=== PATIENT | female | born 1960 | race Caucasian/White ===

== ENCOUNTER → 2016-09-30 | Outpatient (CLI) | payer OTHER ==
[2016-09-30 15:49] LABS: Basophils % (A) 1 %; CH 29.7; CHCM 34.5; Eosinophils # (A) 0.1 k/uL (0-0.7); Eosinophils % (A) 1 %; HCT 37.2 % (34.0-46.0); HDW 2.73; HGB 12.9 gm/dL (11.4-16.0); Luc # (Auto) 0.14; Luc % (Auto) 2; Lymphocytes # (A) 1.8 k/uL (1.0-4.8); Lymphocytes % (A) 23 %; MCHC 34.7 g/dL (31.0-37.0); MCV 86.4 fL (80.0-100.0); Mean Platelet Volume 6.3; Monocytes # (A) 0.4 k/uL (0-1.0); Monocytes % (A) 5 %; Neutrophils # (A) 5.5 k/uL (1.3-7.7); Neutrophils % (A) 69 %; RBC 4.31 m/uL (3.80-5.40); RDW 13.3 % (11.5-15.5); WBC (Perox) 8.35
[2016-09-30 15:52] LABS: Appearance,Urine Cloudy (Clear); Bacteria,Urine Rare /hpf; Bilirubin,Urine Negative (Negative); Glucose,Urine (UA) Negative (Negative); Ketones,Urine Negative (Negative); Leukocyte Esterase,Urine Trace (Negative); Mucus,Urine Occasional /hpf; Nitrite,Urine Negative (Negative); Particle Count 3951; Protein,Urine Negative (Negative); RBC,Urine 10 /hpf (0-5); Specific Gravity,Urine 1.018 (1.001-1.035); Squamous Epithelial Cell,Urine 3 /hpf (0-4); UA Billing (MACRO vs. MICRO) MICRO; Urobilinogen,Urine <2.0 mg/dL (<2.0); WBC,Urine 7 /hpf (0-5)
[2016-09-30 15:55] LABS: INR 1.1 (<1.1); Partial Thromboplastin Time 23.2 sec (22.0-30.0); Prothrombin Time 11.3 sec (9.0-12.0)
[2016-09-30 16:00] LABS: ALT 24 U/L (9-52); AST 13 U/L (14-36); Alkaline Phosphatase 87 U/L (38-126); Anion Gap 9 mmol/L; Blood Urea Nitrogen 20 mg/dL (7-17); Calcium 9.4 mg/dL (8.4-10.2); Carbon Dioxide 27 mmol/L (22-30); Chloride 104 mmol/L (98-107); Glucose 118 mg/dL (74-99); Non-African American GFR(MDRD) >60 (>60 ml/min/1.73 sqM); Potassium 3.8 mmol/L (3.5-5.1); Sodium 140 mmol/L (137-145); Total Bilirubin 0.4 mg/dL (0.2-1.3); Total Protein 6.8 g/dL (6.3-8.2)
== END | disposition home or self-care (01) ==
LOC: LABWHC1 15:19
PROVIDERS: ATTEND Orthopaedic Surgery
DX: Z01.812 Encounter for preprocedural laboratory examination (principal); Z01.818 Encounter for other preprocedural examination
CPT/HCPCS: 36415; 80053; 81001; 85025; 85610; 85730; 87070

== ENCOUNTER 2016-10-12 08:53 | Inpatient (IN) | payer OTHER ==
[2016-10-06 10:02] VITALS: BMI 40.7
--- NOTE | 2016-10-11 13:39 | HP ---
CHIEF COMPLAINT: Right knee pain. 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 She is having aching, soreness and stiffness. She has intermittent giving way. She had a previous arthroscopy in 2008 in addition to previous injections with only a partial temporary relief. She has tried an assortment of medications with only partial temporary relief. Past medical history is significant for rheumatoid arthritis and depression. Past surgical history is significant for right knee arthroscopy in addition to right shoulder surgery. CURRENT MEDICATIONS: 1. Ibuprofen. 2. Tylenol. She has allergies to ASPIRIN and LATEX. Family history is negative. Social history is negative for current tobacco or alcohol use. On examination, the patient is a well-developed, well-nourished female of endomorphic habitus. HEENT exam is nonfocal. Neck is supple. She has painless passive motion of the right hip, straight leg raise is negative. Active motion right knee -12 to 70 degrees of flexion. She has a large effusion. She is tender about the medial and lateral joint line. Collaterals are stable, Trevon is negative, Celina's is equivocal. She has genu valgum alignment. Her distal neurovascular exam appears to be intact in the right lower extremity. Previous weight-bearing, notch, lateral and Merchant views of the right knee obtained in the office show several lateral and patellofemoral compartment narrowing. IMPRESSION: 1. Right knee severe lateral and patellofemoral compartment osteoarthritis/ rheumatoid arthritis. 2. Increased body mass index. RECOMMENDATIONS: I talked to the patient at length regarding her treatment options. She is having significant pain and limitation related to her knee arthritis despite conservative measures. After a thorough discussion, she opts to proceed with surgery. We will plan to proceed with right total knee arthroplasty. We will institute DVT prophylaxis postoperatively. The patient underwent preoperative medical evaluation by Dr. Brown. [place]
[~2016-10-12 08:53] MED LIST: ACETAMINOPHEN TAB 500 MG TAB PO ONE; DEXAMETHASONE SOD PHOSPHATE 10 MG/ML 1 ML VIAL IV ONE; HYDROmorphone 1 MG/ML 1 ML SYRINGE IVP PRN; MELOXICAM 7.5 MG TAB PO ONE; MIDAZOLAM 2 MG/2 ML VIAL IV PRN; ONDANSETRON 4 MG/2 ML VIAL IVP ONE; TRANEXAMIC ACID 1,000 MG in SODIUM CHLORIDE 0.9% 100 ML IVPB ONE; ceFAZolin 2 GM in SODIUM CHLORIDE 0.9% 100 ML IVPB ONE
[2016-10-12] MEDS ORDERED: ROPIVACAINE 246.25 MG, EPINEPHrine 0.5 MG, KETOROLAC 30 MG, cloNIDine HCL/PF 80 MCG, WA... MISCELLANE ONE ×5 (09:51)
[2016-10-12] MEDS ORDERED: LIDOCAINE 1% 20 ML VIAL (10MG/ML) FOR IV START INTRADERMA ONE (10:15)
[2016-10-12] MEDS ORDERED: fentaNYL (PF) 50 MCG/ML 2 ML AMP IV ONE (10:17)
[2016-10-12] MEDS: LACTATED RINGERS 1,000 ML IV SCH (10:42)
[2016-10-12] MEDS ORDERED: ROPIVACAINE 1,100 MG, SODIUM CHLORIDE 0.9% 330 ML MISCELLANE PRN ×2 (10:47)
--- NOTE | 2016-10-12 10:50 | P.ONQ ---
Anesthesiology Proc Note - PNB - Peripheral Nerve Block Performed Right Adductor Canal Infusion Time Out Performed: Yes Procedure Start Time: 10:20 Procedure Stop Time: 10:30 Indication: Acute Post-Operative Pain, Requested by physician Specifically requested for management of pain by : Marcelo Doran Sedation Type: Sedate with meaningful contact maintained Preparation: Sterile Dressing Position: Supine Catheter Depth at Skin (cm): 6 Catheter: Indwelling Needle Types: Other (see comment) Needle Size: 100mm (4") Needle Gauge: 20, Other (see comment) (JOHN) Technique: Ultrasound Injectate: 0.5% Ropivacaine (see comment for volume) (25 ml)
[2016-10-12] MEDS ORDERED: LIDOCAINE 1% INJ 10MG/ML (20 ML MDV) ONE (10:53)
[2016-10-12] MEDS ORDERED: fentaNYL (PF) 50 MCG/ML 2 ML AMP ONE (10:53)
[2016-10-12] MEDS ORDERED: SODIUM CHLORIDE 0.9% 100 ML BAG ONE (10:53)
[2016-10-12] MEDS ORDERED: MIDAZOLAM 2 MG/2 ML VIAL ONE (10:53)
[2016-10-12] MEDS ORDERED: PROPOFOL 10 MG/ML 20 ML VIAL IV ONE (10:53)
[2016-10-12] MEDS ORDERED: TRANEXAMIC ACID 1,000 MG/10 ML VIAL ONE (10:53)
[2016-10-12] MEDS ORDERED: ceFAZolin 3,000 MG in SODIUM CHLORIDE 0.9% IRRIGATIO 3,000 ML IRRIGATION ONE (11:23)
[2016-10-12] MEDS ORDERED: LACTATED RINGERS 1,000 ML IV ONE (12:36)
[2016-10-12] MEDS ORDERED: MAGNESIUM HYDROXIDE 2,400 MG/10 ML CUP PO PRN (13:03)
[2016-10-12] MEDS ORDERED: ACETAMINOPHEN TAB 325 MG TAB PO PRN (13:03)
[2016-10-12] MEDS ORDERED: HYDROmorphone 1 MG/ML 1 ML SYRINGE IVP PRN (13:03)
[2016-10-12] MEDS ORDERED: NALOXONE 0.4 MG/ML 1 ML VIAL IV PRN (13:03)
[2016-10-12] MEDS ORDERED: HYDROcodone/APAP 7.5-325MG 1 EACH TAB PO PRN (13:03)
[2016-10-12] MEDS ORDERED: ONDANSETRON 4 MG/2 ML VIAL IVP PRN (13:03)
--- NOTE | 2016-10-12 13:36 | P.OP ---
Date of Procedure: 10/12/16 Preoperative Diagnosis: Right knee severe tricompartmental rheumatoid arthritis Postoperative Diagnosis: Same Procedure(s) Performed: Right total knee qszrneuxkjex-kybvoaib-xzxdclcer stabilized Implants: Depuy attune size 5 cemented femoral component, size 4 cemented tibial component , 9 mm articular surface, 32 mm cemented patellar component. This is a posterior stabilized implant. Anesthesia: regional, local, spinal Surgeon: Marcelo Doran Marketing Rotation Associate #1: Rd Bailey Estimated Blood Loss (ml): 50 Pathology: other (Bone fragments) Condition: stable Disposition: PACU Indications for Procedure: The patient's a 55-year-old female with severe rheumatoid arthritis of her right knee who had persistent symptoms that limited her despite conservative measures. A discussion of the risks and benefits of operative intervention versus continued conservative measures was made with the patient. She opted to proceed with surgery. Operative risks to include infection, neurovascular injury, development of blood clots, possible component loosening, possible component failure and need for subsequent procedures was discussed. Informed consent was obtained. Operative Findings: As below/severe synovitis Description of Procedure: The patient was brought to the operating room and after induction of spinal anesthesia the right lower extremity was prepped and draped in normal fashion. The limb was elevated to facilitate exsanguination. The tourniquet was inflated to 270 mmHg. A longitudinal incision extending 3 finger breaths above this. Pole patella extending to the medial aspect the tibial tubercle was then made. The skin and subcutaneous tissues were divided sharply. Electrocautery was used for hemostasis. A medial parapatellar arthrotomy was performed. The medial soft tissues to include the superficial and deep portions of the medial collateral ligament as well as the medial hamstring tendons were elevated subperiosteally. The patella was everted. A portion of the retropatellar fat pad was excised sharply. The knee was then flexed. The anterior cruciate ligament was resected. There was significant synovitis that was sharply debrided. I did release the LCL and popliteus from the lateral femoral upper condyle with electrocautery as she had significant valgus deformity. A starting hole was made in the distal femur 1 cm anterior to the posterior cruciate ligament origin. An intramedullary femoral guide was gently inserted planning on 5 valgus distal cut with 9 mm distal resection. The block was pinned in placed and the distal cut made. The posterior referencing sizing guide was utilized. I felt size 5 was most appropriate. 3 external rotation was built into the system and verified off the trans-epicondylar axis and the posterior condyles. The cutting block was pinned in place. The anterior, posterior, and chamfer cuts were then made. The bone fragments were then removed. The box guide was placed and the box cut was made with a reciprocating saw. The trial size 5 femoral component was then placed. It was fully seated. There was good anterior to posterior and medial to lateral fit. It was noted there was a small fracture line extending along the lateral aspect of the notch cut into the femoral condyle. I did place a 4.5 mm x 70 mm cortical screw to compress this. It appeared to be stable. Attention was then paid towards preparing the proximal tibia. An extra medullary guide was utilized in line with the tibial shaft and second metatarsal distally. I planned on 0 posterior slope. I planned on 6 mm resection from the medial compartment. The cutting block was pinned in place. The proximal tibial cut was made in the bone removed in one fragment. An additional 2 mm was resected as the flexion and extension gaps were both tight. The tibia sized most appropriate size 4. The trial femoral and tibial components were placed along with a 9 mm articular surface. Limb to obtain full flexion and extension with good stability with varus and valgus stress. After several flexion and extension cycles, the tibial rotation was marked with electrocautery in line with the medial one third of the tibial tubercle. Attention was then paid towards preparing the patella. A patella reamer was utilized taking this down to 14 mm of bone stock. A good flush cut was made. The patella sized most appropriate 32 mm. The peg holes were drilled. The trial components were placed. The knee was taken through range of motion. I had good patellofemoral tracking with no hands technique. The trial components were then removed. The remnants the medial lateral menisci were excised at the capsular junction with electrocautery. The tibia was prepared in the appropriate rotation with appropriate drill and keel punch. The flexion and extension gaps were checked and felt to be symmetric. The posterior soft tissues were injected with ropivacaine. The bony surfaces were prepared with pulsatile lavage and dried. The tibial component was cemented in placed and was fully seated. Excess cement was removed. The femoral component was cemented in placed and was fully seated. Excess cement was removed. The trial 9 mm articular surface was placed and the knee was put in full extension. The patella component was cemented in placed and was fully seated. After the cement had sufficiently hardened, the knee was again taken through range of motion. Again I was able to obtain full flexion and extension with good stability with varus and valgus stress. The trial articular surface was removed and the final one inserted. Care was taken to avoid any soft tissue interposition. Pulsatile lavage was utilized. The medial parapatellar arthrotomy was closed with #2 Ethibond suture. A deep drain was placed exiting laterally. The tourniquet was deflated with approximately 80 minutes total tourniquet time. Final hemostasis was obtained with electrocautery. The second dose of IV TXA was given. The subcutaneous tissues were reapproximated with interrupted 2-0 Vicryl sutures. The skin was reapproximated with 3-0 subcuticular strata fix suture. Skin tape and adhesive was applied. A sterile dressing was applied. The patient was awoken from sedation and transferred to the recovery room in good condition. Blood loss was estimated 50 mL. Complications include an iatrogenic fracture of the lateral femoral condyle that was repaired with a 4.5 mm cortical screw. Sponge and needle counts were correct at the end the case.
--- NOTE | 2016-10-12 13:43 | XR ---
EXAMINATION TYPE: XR knee limited RT, 2 VIEWS DATE OF EXAM ORDERED: 10/12/2016 HISTORY: Right knee arthroplasty. COMPARISON: None. FINDINGS: A right knee arthroplasty has been performed. Prosthetic elements appear in good position. A metaphyseal screw is in place. One surgical drain is in place. There is subcutaneous and intra-art icular air. IMPRESSION: STATUS POST RIGHT ARTHROPLASTY.
[2016-10-12] MEDS: HYDROcodone/APAP 7.5-325MG 1 EACH TAB PO PRN (16:28)
[2016-10-12] MEDS: traMADol 50 MG TAB PO SCH ×2 (18:00→22:33)
--- NOTE | 2016-10-12 18:41 | P.CONS ---
History of Present Illness - Reason for Consult Mild sinus tachycardia, preoperative composition management. - History of Present Illness Patient underwent right knee arthroplasty patient pain is well controlled with no cold but she is concerned about constipation. Patient did not pass gas yet that did not move her bowels.. I'm starting her on MiraLAX and when necessary basis for constipation. Patient is slightly tachycardic. Denied any fever, chills, nausea, vomiting, abdominal pain. Review of Systems REVIEW OF SYSTEMS: CONSTITUTIONAL: No fever, no malaise, no fatigue. HEENT: No recent visual problems or hearing problems. Denied any sore throat. CARDIOVASCULAR: No chest pain, orthopnea, PND, no palpitations, no syncope. PULMONARY: No shortness of breath, no cough, no hemoptysis. GASTROINTESTINAL: No diarrhea, no nausea, no vomiting, no abdominal pain. Normoactive bowel sounds. NEUROLOGICAL: No headaches, no weakness, no numbness. HEMATOLOGICAL: Denies any bleeding or petechiae. GENITOURINARY: Denies any burning micturition, frequency, or urgency. MUSCULOSKELETAL/RHEUMATOLOGICAL: Denies any joint pain, swelling, or any muscle pain. ENDOCRINE: Denies any polyuria or polydipsia. The rest of the 14-point review of systems is negative. Past Medical History Past Medical History: Osteoarthritis (OA) History of Any Multi-Drug Resistant Organisms: None Reported Past Surgical History: Hysterectomy, Orthopedic Surgery Additional Past Surgical History / Comment(s): r-knee, l-shoulder scopes Past Anesthesia/Blood Transfusion Reactions: No Reported Reaction Past Psychological History: No Psychological Hx Reported Smoking Status: Former smoker - Past Family History Mother Family Medical History: No Reported History Father Family Medical History: Unable to Obtain Medications and Allergies Home Medications Medication Instructions Recorded Confirmed Type Ciprofloxacin HCl [Cipro] 500 mg PO Q12HR 10/06/16 10/12/16 History DULoxetine HCL [Cymbalta] 20 mg PO DAILY 10/06/16 10/12/16 History Ibuprofen [Motrin] 800 mg PO TID PRN 10/06/16 10/12/16 History Krill/Om-3/Dha/Epa/Phospho/Ast 1 cap PO DAILY 10/06/16 10/12/16 History [[place]-3 Krill Oil 300 mg Sfgl] Lysine [l-Lysine] 500 mg PO DAILY 10/06/16 10/12/16 History Multivitamins, Thera [Multivitamin 1 tab PO DAILY 10/06/16 10/12/16 History (formulary)] Allergies Allergy/AdvReac Type Severity Reaction Status Date / Time aspirin AdvReac stomach Verified 10/12/16 09:44 pain latex AdvReac Rash/Hives Verified 10/12/16 09:44 with blisters Physical Exam Vitals: Vital Signs Temp Pulse Resp BP Pulse Ox 10/12/16 16:45 103 H 144/78 10/12/16 16:30 94 147/74 10/12/16 16:15 90 156/79 10/12/16 16:00 96 137/87 10/12/16 15:45 85 136/83 10/12/16 15:30 95 135/78 10/12/16 15:15 95 132/78 10/12/16 15:00 94 123/73 10/12/16 14:45 96.8 F L 95 16 124/69 94 L 10/12/16 14:15 105 H 18 129/61 93 L 10/12/16 14:00 94 18 128/58 94 L 10/12/16 13:45 95 16 128/58 94 L 10/12/16 13:30 96 16 137/63 97 10/12/16 13:22 97.3 F L 104 H 16 136/64 98 10/12/16 09:40 98.5 F 83 16 142/65 99 Intake and Output 10/12/16 10/12/16 10/12/16 06:59 14:59 22:59 Intake Total 1201 Output Total 550 600 Balance 651 -600 Intake: IV 1201 Output: Urine 500 600 Estimated Blood Loss 50 Other: Weight 104.326 kg Patient Weight 10/13/16 06:59 Weight 104.326 kg PHYSICAL EXAMINATION: GENERAL: The patient is alert and oriented x3, not in any acute distress. Well developed, well nourished. HEENT: Pupils are round and equally reacting to light. EOMI. No scleral icterus. No conjunctival pallor. Normocephalic, atraumatic. No pharyngeal erythema. No thyromegaly. CARDIOVASCULAR: S1 and S2 present. No murmurs, rubs, or gallops. PULMONARY: Chest is clear to auscultation, no wheezing or crackles. ABDOMEN: Soft, nontender, nondistended, normoactive bowel sounds. No palpable organomegaly. MUSCULOSKELETAL: defer to orthopedic surgery EXTREMITIES: No cyanosis, clubbing, or pedal edema. NEUROLOGICAL: Gross neurological examination did not reveal any focal deficits. SKIN: No rashes. Assessment and Plan Plan: 1 mild tachycardia appears to be sinus tachycardic and exam I believe it secondary to pain, pain control. Monitor vitals. If her heart rate remains high then we will do further workup with TSH and EKG 2 postoperative day 0 right knee arthroplasty: Patient's pain is better controlled with [place] but concerned about constipation for which we'll use MiraLAX. DVT prophylaxis as per primary service patient is on xarelto for DVT prophylaxis posterior right knee arthroplasty. We will follow the patient on as-needed basis.
[2016-10-12] MEDS: HYDROmorphone 1 MG/ML 1 ML SYRINGE IVP PRN ×2 (19:21→23:31)
[2016-10-12] MEDS: ceFAZolin 2 GM in SODIUM CHLORIDE 0.9% 100 ML IVPB SCH (19:41)
[2016-10-12] MEDS ORDERED: SENNOSIDES-DOCUSATE SODIUM 1 EACH TAB PO SCH (21:00)
[2016-10-13] MEDS: ceFAZolin 2 GM in SODIUM CHLORIDE 0.9% 100 ML IVPB SCH (03:09)
[2016-10-13] MEDS: LACTATED RINGERS 1,000 ML IV SCH (05:07)
[2016-10-13] MEDS: HYDROmorphone 1 MG/ML 1 ML SYRINGE IVP PRN (06:01)
[2016-10-13 07:04] LABS: Basophils % (A) 0 %; CH 29.7; CHCM 33.6; Eosinophils % (A) 0 %; HCT 35.6 % (34.0-46.0); HDW 2.81; Luc # (Auto) 0.16; Luc % (Auto) 2; Lymphocytes # (A) 1.6 k/uL (1.0-4.8); Lymphocytes % (A) 16 %; MCHC 33.7 g/dL (31.0-37.0); MCV 89.1 fL (80.0-100.0); Mean Platelet Volume 6.5; Monocytes # (A) 0.6 k/uL (0-1.0); Monocytes % (A) 6 %; Neutrophils # (A) 7.7 k/uL (1.3-7.7); Neutrophils % (A) 76 %; RBC 3.99 m/uL (3.80-5.40); RDW 13.8 % (11.5-15.5); WBC (Perox) 10.12
[2016-10-13 08:10] VITALS: BP 159/77; PULSE 87; RESP 16; TEMP 97.3
[2016-10-13] MEDS ORDERED: RIVAROXABAN 10 MG TAB PO SCH (09:00)
[2016-10-13] MEDS ORDERED: POLYETHYLENE GLYCOL 3350 17 GM POWD.PACK PO SCH (09:00)
[2016-10-13] MEDS ORDERED: FAMOTIDINE 20 MG TAB PO SCH (09:00)
[2016-10-13] MEDS: traMADol 50 MG TAB PO SCH ×2 (09:22→13:40)
[2016-10-13] MEDS: HYDROcodone/APAP 7.5-325MG 1 EACH TAB PO PRN ×2 (09:22→14:52)
--- NOTE | 2016-10-13 11:34 | P.PN ---
Progress Note - Text . Postoperative day # 1 status post total knee arthroplasty, under spinal anesthesia, and adductor canal catheter placed for postoperative analgesia, currently at ropivacaine 0.2% 8 mL per hour and continuous infusion, catheter site local. There is no erythema, and there is no tenderness, visual analogue scale is 3/10, patient using oral pain medication for breakthrough pain. Assessment and plan= Acute postoperative pain, adductor canal catheter for pain control, pain is well controlled we'll continue the same management.
--- NOTE | 2016-10-13 11:57 | P.PN ---
Subjective Principal diagnosis: Status post right total knee arthroplasty Patient is seen today resting in her hospital bed, she appears comfortable. Her urinary catheters been discontinued, she is urinating on her own. Pain is well-controlled. She is admitted well with PT. She denies any headaches, lightheadedness, chest pain, shortness of breath, fever or chills. Objective - Vital Signs Vital signs: Vital Signs Temp 97.3 F L 10/13/16 07:00 Pulse 87 10/13/16 07:00 Resp 16 10/13/16 07:00 BP 159/77 10/13/16 07:00 Pulse Ox 97 10/13/16 07:00 Intake & Output 10/12/16 10/13/16 10/13/16 18:59 06:59 18:59 Intake Total 1201 900 Output Total 1150 850 310 Balance 51 50 -310 Weight 104.326 kg Intake: IV 1201 Oral 900 Output: Drainage 10 Right Knee 10 Urine 1100 850 300 Uretheral (Bonner) 300 Estimated Blood Loss 50 Other: Voiding Method Indwelling Catheter - Exam Right lower extremity: Incision is clean, dry, and intact. Anterior posterior compartments the upper leg are soft, calf is supple, no tenderness with palpation.(Plantar flexion, dorsiflexion, EHL, FHL are intact. Sensory exam to light touch throughout the extremity is intact. Dorsal pedis pulses 2+. - Labs CBC & Chem 7: 10/13/16 06:24 Assessment and Plan Plan: Assessment: 1. Postop day #1 status post right total knee arthroplasty Plan: 1. Pain control, continue supportive oral medication 2. Continue work with therapy and CPM use 3. Encourage incentive spirometer 4. GI and DVT prophylaxis, continue Xarelto 5. Daily dressing changes/ice and elevate 6. Medical recommendations 7. Discharge planning: Patient will likely be discharged home today Time with Patient: Less than 30
--- NOTE | 2016-10-13 11:59 | P.DS ---
Providers Date of admission: 10/12/16 08:53 Expected date of discharge: 10/13/16 Attending physician: Marcelo Doran Consults: 10/12/16 13:05 Consult Physician Routine Consulting Provider: Garcia Neal Consult Reason/Comments: Medical Management Do you want consulting provider notified?: Yes Primary care physician: [facility] Hospital Course: Date of admission: 10/12/2016 Date of discharge: 10/13/2016 Admission diagnosis: Status post right total knee arthroplasty Discharge diagnosis: Same Attending physician: Dr. Doran Surgical procedures: Right total knee arthroplasty Brief history: Patient is a 55-year-old female with a history of progressive primary right knee osteoarthritis. At this point patient has failed conservative treatment measures and has opted to proceed with a elective right total knee arthroplasty. Hospital course: Details of patient's surgery can be found in operative report. Patient tolerated the procedure well and was subsequently transported to orthopedic floor. Patient's orthopeidc and medical care was provided daily. Patient had daily laboratory tests performed for evaluation of overall blood counts. Patient had daily physical therapy to include strengthening range of motion as well as education with walker ambulation. Patient had daily CPM usage as part of their physical therapy program. Patient was treated with Xarelto for their postoperative DVT prophylaxis during their inpatient stay. Patient was noted to have a relatively uneventful postoperative course. Patient reported satisfactory pain control with oral pain medications by postoperative day 0. Patient showed satisfactory progress with physical therapy. Patient moved steadily through the program and had no difficulty meeting the goals by postoperative day 1. Given patient's otherwise satisfactory course and having met physical therapy goals, plan is to discharge patient home on postoperative day 1. Discharge condition/disposition: Patient will be discharged home in stable condition. Discharge medications: Instructions are given on resumption of patient's normal daily medications per primary care recommendation, in addition patient will be prescribed [place] 7.5 mg/325 mg, tramadol 50 mg, Colace 100 mg, Pepcid 20 mg, Coumadin 2.5mg. Discharge instructions: 1. Wound care and infection precautions, keep incision dry and covered while showering, no lotions, creams, moisturizers. No soaking, tubs, pools, hottubs. Do not scrub over the incision. 2. Weight-bear as tolerated with walker / cane until follow-up. 3. Ice and elevate when necessary. Do not exceed 20 minutes per hour with ice pack. 4. Utilize compression sleeve until seen at first follow up appointment. 5. Visiting nursing care. 6. Home physical therapy including home CPM. 7. Pain meds and anticoagulants per prescription. 8. Pain medication has potential to cause constipation. Increase oral fluid and fiber intake. Contact primary care provider if you have not had a bowel movement within 48 hours after discharge 9. No anti-inflammatory medication until discussed at first post operative visit, this including Motrin, Aleve, Mobic, Diclofenac. 10. Follow up in office at 2 weeks postop with Herve Bailey PA-C 11. Follow up with your primary care doctor 7-10 days after discharge. 12. Contact [facility] with any questions, . Procedures: Right total knee arthroplasty Patient Condition at Discharge: Good Plan - Discharge Summary New Discharge Prescriptions: New Docusate [Colace] 100 mg PO DAILY #30 capsule Famotidine [Pepcid] 20 mg PO DAILY #30 tablet HYDROcodone/APAP 7.5-325MG [[place] 7.5] 1 - 2 each PO Q6HR PRN #60 tab PRN Reason: Pain traMADol HCl [Ultram] 50 mg PO Q6H PRN #40 tab PRN Reason: Pain Warfarin [Coumadin] 2.5 mg PO DAILY #60 tab Continue Multivitamins, Thera [Multivitamin (formulary)] 1 tab PO DAILY DULoxetine HCL [Cymbalta] 20 mg PO DAILY Lysine [l-Lysine] 500 mg PO DAILY Discontinued Krill/Om-3/Dha/Epa/Phospho/Ast [[place]-3 Krill Oil 300 mg Sfgl] 1 cap PO DAILY Ibuprofen [Motrin] 800 mg PO TID PRN PRN Reason: Pain Ciprofloxacin HCl [Cipro] 500 mg PO Q12HR Discharge Medication List DULoxetine HCL [Cymbalta] 20 mg PO DAILY 10/06/16 [History] Lysine [l-Lysine] 500 mg PO DAILY 10/06/16 [History] Multivitamins, Thera [Multivitamin (formulary)] 1 tab PO DAILY 10/06/16 [History ] Docusate [Colace] 100 mg PO DAILY #30 capsule 10/13/16 [Rx] Famotidine [Pepcid] 20 mg PO DAILY #30 tablet 10/13/16 [Rx] HYDROcodone/APAP 7.5-325MG [[place] 7.5] 1 - 2 each PO Q6HR PRN #60 tab 10/13/16 [ Rx] Warfarin [Coumadin] 2.5 mg PO DAILY #60 tab 10/13/16 [Rx] traMADol HCl [Ultram] 50 mg PO Q6H PRN #40 tab 10/13/16 [Rx] Follow up Appointment(s)/Referral(s): Sunday Brown MD [Primary Care Provider] - 10/26/16 1:00 pm [facility], [NON-STAFF] - [address] Bailey PAC [PHYSICIAN ONCOLOGY NAVIGATOR] - 10/27/16 1:30 pm Ambulatory/Diagnostic Orders: Prothrombin Time INR [LAB.AMB] Location: Determined By Patient Patient Instructions/Handouts: *Surgery [facility] - On-Q Pain Pump Discharge Instructions, Warfarin (By mouth), Knee Replacement (DC) Activity/Diet/Wound Care/Special Instructions: CPM ordered through [facility]: #[phone] Orthopedic Discharge Instructions: 1. Wound care and infection precautions, keep incision dry and covered while showering, no lotions, creams, moisturizers. No soaking, pools, hot tubs. Do not scrub over incision. 2. Weight-bear as tolerated with walker / cane until follow-up. 3. Ice and elevate when necessary. Do not exceed 20 minutes per hour with ice pack. 4. Utilize compression sleeve until seen at first follow up appointment. 5. Visiting nursing care. 6. Home physical therapy including home CPM. 7. Pain meds and anticoagulants per prescription. 8. Pain medication has potential to cause constipation. Increase oral fluid and fiber intake. Contact primary care provider if you have not had a bowel movement within 48 hours after discharge. 9. No anti-inflammatory medication until discussed at first post operative visit, this including Motrin, Aleve, Mobic, Diclofenac. 10. Follow up in office at 2 weeks postop with Herve Bailey PA-C 11. Follow up with your primary care doctor 7-10 days after discharge. 12. Contact [facility] with any questions, . Discharge Disposition: HOME WITH HOME HEALTH SERVICES
== END 2016-10-13 18:02 | disposition home health service (06) | DRG 470 ==
LOC: 2ORMAIN 08:53 → 3SUR 13:34
PROVIDERS: ADMIT Orthopaedic Surgery; ATTEND Orthopaedic Surgery
PROC: 0SRC0J9 Replacement of Right Knee Joint with Synthetic Substitute, Cemented, Open Approach (ICD-10-PCS; principal; 2016-10-12 10:30)
DX: M17.11 Unilateral primary osteoarthritis, right knee (principal); M06.9 Rheumatoid arthritis, unspecified; F32.9 Major depressive disorder, single episode, unspecified; G89.18 Other acute postprocedural pain; M21.061 Valgus deformity, not elsewhere classified, right knee; M65.9 Synovitis and tenosynovitis, unspecified; R00.0 Tachycardia, unspecified; Z87.891 Personal history of nicotine dependence; Z91.040 Latex allergy status; Z88.6 Allergy status to analgesic agent; Z79.899 Other long term (current) drug therapy
CPT/HCPCS: 85025; 88300

== ENCOUNTER → 2016-11-18 | Outpatient (CLI) | payer OTHER ==
--- NOTE | 2016-11-18 20:50 | CT ---
EXAMINATION TYPE: CT urogram wo/w con DATE OF EXAM: 11/18/2016 COMPARISON: NONE HISTORY: Frequent urination and microscopic hematuria. CT DLP: 3184.00 mGycm CONTRAST: Performed and without and with IV Contrast, patient injected with 100 mL of Omnipaque 350. CT Urography was performed with unenhanced followed by enhanced images of the kidneys, ureters and ur inary bladder. Delayed images were obtained. 3d reconstruction was perfromed at a separate work sta tion. FINDINGS: KIDNEYS/BLADDER: No hydronephrosis. Bilateral extrarenal pelvis noted. No nephrolithiasis. No disti nct renal mass. Urinary bladder grossly unremarkable. LUNG BASES-: No visible nodule. No infiltrate. LIVER/GB: Large gallstone is noted. No space occupying hepatic lesion. Biliary tree is of normal benedicto sara. PANCREAS: No inflammation. No distinct mass. SPLEEN: No splenic enlargement. No lesion seen. ADRENALS: No nodule. No thickening. BOWEL: Normal appendix. Normal bowel caliber. No inflammation. GENITAL ORGANS: No gross abnormality. LYMPH NODES: No greater than 1cm abdominal or pelvic lymph nodes are appreciated. AORTA: No significant abnormality. OSSEOUS STRUCTURES: No significant abnormality is seen. OTHER: No significant additional abnormality is seen. IMPRESSION: 1. No significant abnormality to account for the patient's symptoms. 2. Large gallstone without wall thickening or pericholecystic fluid.
== END | disposition home or self-care (01) ==
LOC: RADCTMAIN 18:06
PROVIDERS: ATTEND Urology
DX: K80.80 Other cholelithiasis without obstruction (principal); R31.21 Asymptomatic microscopic hematuria; Z91.040 Latex allergy status; Z88.6 Allergy status to analgesic agent
CPT/HCPCS: 74178; 74400; Q9967

== ENCOUNTER → 2018-07-11 | Outpatient (CLI) | payer BC ==
--- NOTE | 2018-07-12 09:10 | MM ---
Reason for exam: screening (asymptomatic). Last mammogram was performed 3 years and 1 month ago. History: Took hormonal contraceptives for 15 years. Physical Findings: A clinical breast exam by your physician is recommended on an annual basis and results should be correlated with mammographic findings. MG 3D Screening Mammo W/Cad Bilateral CC and MLO view(s) were taken. Prior study comparison: June 17, 2015, mammogram, performed at [facility]. There are scattered fibroglandular densities. There are benign appearing round calcifications bilaterally. There is chronic nodularity in the right breast. There is no discrete abnormality. ASSESSMENT: Benign, BI-RAD 2 RECOMMENDATION: Routine screening mammogram of both breasts in 1 year.
== END ==
LOC: RADMAMWWP 11:11
PROVIDERS: ATTEND Family Medicine
DX: Z12.31 Encounter for screening mammogram for malignant neoplasm of breast (principal)
CPT/HCPCS: 77063; 77067

== ENCOUNTER 2018-11-18 18:24 | Inpatient (IN) | payer BC ==
[2018-11-18] MEDS ORDERED: SODIUM CHLORIDE 0.9% 500 ML 500 ML IV STA (18:45)
[2018-11-18] MEDS ORDERED: SODIUM CHLORIDE 0.9% 1,000 ML IV STA (18:45)
--- NOTE | 2018-11-18 18:52 | ED ---
Abdominal Pain HPI <Enrique Darden - Last Filed: 11/18/18 20:47> - General Source: patient Mode of arrival: EMS Limitations: no limitations <Emilie Hercules - Last Filed: 11/18/18 20:58> - General Chief Complaint: Abdominal Pain Stated Complaint: abd pain Time Seen by Provider: 11/18/18 18:26 - History of Present Illness Initial Comments: 57-year-old female patient presents to the emergency department today for evaluation of upper abdominal pain. Patient states that starting around 5 PM she developed a sharp pain to the left upper abdomen. Patient states the pain travel across to the midepigastric region intensified. Patient states she was driving herself here in the pain became so bad she was unable to breathe. 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 Patient denies any nausea or vomiting with this. Denies any constipation or diarrhea. She denies any hematuria, dysuria, urinary frequency, urinary urgency. States she did have a similar pain approximately 20 years ago but they're unable to figure out the cause. Patient denies any history of abdominal surgery. States she does have a history of rheumatoid arthritis for which she does take methotrexate. States she's been on that medication for quite some time. Patient denies any recent rash, fever, chills, chest pain, abdominal pain, back pain, numbness, tingling, dizziness, weakness, headache, visual changes, or any other complaints. (Emilie Hercules) - Related Data Home Medications Medication Instructions Recorded Confirmed DULoxetine HCL [Cymbalta] 20 mg PO DAILY 10/06/16 10/12/16 Lysine [l-Lysine] 500 mg PO DAILY 10/06/16 10/12/16 Multivitamins, Thera [Multivitamin 1 tab PO DAILY 10/06/16 10/12/16 (formulary)] Previous Rx's Medication Instructions Recorded Docusate [Colace] 100 mg PO DAILY #30 capsule 10/13/16 Famotidine [Pepcid] 20 mg PO DAILY #30 tablet 10/13/16 HYDROcodone/APAP 7.5-325MG [[place] 1 - 2 each PO Q6HR PRN #60 tab 10/13/16 7.5] Warfarin [Coumadin] 2.5 mg PO DAILY #60 tab 10/13/16 traMADol HCl [Ultram] 50 mg PO Q6H PRN #40 tab 10/13/16 Allergies Allergy/AdvReac Type Severity Reaction Status Date / Time aspirin AdvReac stomach Verified 10/12/16 09:44 pain latex AdvReac Rash/Hives Verified 10/12/16 09:44 with blisters Review of Systems ROS Other: All systems not noted in ROS Statement are negative. <Enrique Darden - Last Filed: 11/18/18 20:47> ROS Other: All systems not noted in ROS Statement are negative. <Emilie Hercules - Last Filed: 11/18/18 20:58> ROS Statement: Those systems with pertinent positive or pertinent negative responses have been documented in the HPI. Past Medical History Past Medical History: Rheumatoid Arthritis (RA) History of Any Multi-Drug Resistant Organisms: None Reported Past Surgical History: Hysterectomy, Orthopedic Surgery Additional Past Surgical History / Comment(s): r-knee, l-shoulder scopes Past Anesthesia/Blood Transfusion Reactions: No Reported Reaction Past Psychological History: No Psychological Hx Reported Smoking Status: Never smoker Past Alcohol Use History: Occasional Past Drug Use History: None Reported - Past Family History Mother Family Medical History: No Reported History Father Family Medical History: Unable to Obtain <Emilie Hercules - Last Filed: 11/18/18 20:58> General Exam Limitations: no limitations General appearance: alert, in no apparent distress, other (This is a well- developed, well-nourished adult female patient in no acute distress. Vital signs upon presentation are temperature 97.6F, pulse 83, respirations 14, blood pressure 129/70, pulse ox 100% on room air.) Eye exam: Present: normal appearance, PERRL, EOMI. Absent: scleral icterus, conjunctival injection, periorbital swelling ENT exam: Present: normal exam, normal oropharynx, mucous membranes moist Respiratory exam: Present: normal lung sounds bilaterally. Absent: respiratory distress, wheezes, rales, rhonchi, stridor Cardiovascular Exam: Present: regular rate, normal rhythm, normal heart sounds. Absent: systolic murmur, diastolic murmur, rubs, gallop, clicks GI/Abdominal exam: Present: soft, tenderness (Right upper quadrant and midepigastric tenderness), normal bowel sounds. Absent: distended, guarding, rebound, rigid Neurological exam: Present: alert, oriented X3, CN II-XII intact Psychiatric exam: Present: normal affect, normal mood Skin exam: Present: warm, dry, intact, normal color. Absent: rash <Emilie Hercules - Last Filed: 11/18/18 20:58> Course <Enrique Darden - Last Filed: 11/18/18 20:47> Vital Signs 11/18/18 18:29 Temperature 97.6 F Pulse Rate 83 Respiratory 14 Rate Blood Pressure 129/70 O2 Sat by Pulse 100 Oximetry - Reevaluation(s) Reevaluation #1: 11/18/18 20:47NP supervision: I personally evaluate this case and did discuss case with Dr. Mills patient does demonstrate evidence of cholelithiasis with common bile duct dilatation. Patient will be admitted I do agree with the assessment and plan (Enrique Darden) Medical Decision Making - Lab Data Result diagrams: 11/18/18 18:42 11/18/18 18:42 <Enrique Darden - Last Filed: 11/18/18 20:47> - Lab Data Result diagrams: 11/18/18 18:42 11/18/18 18:42 - Radiology Data Radiology results: report reviewed, image reviewed <Emilie Hercules - Last Filed: 11/18/18 20:58> - Medical Decision Making 57-year-old female patient presented to the emergency department today for evaluation of upper abdominal pain. She exhibited midepigastric right upper quadrant tenderness. Labs reviewed and did reveal elevated AST at 95. Ultrasound was obtained and did show 2 cm stone in the gallbladder neck with dilation of the common bile duct. Case was discussed with on-call surgeon Dr. Mills, will admit for possible cholecystectomy tomorrow. Did discuss findings and results with the patient, she is agreeable. (Emilie Hercules) - Lab Data Lab Results 11/18/18 11/18/18 11/18/18 Range/Units 18:42 18:42 18:42 WBC 8.1 (3.8-10.6) k/uL RBC 4.31 (3.80-5.40) m/uL Hgb 12.6 (11.4-16.0) gm/dL Hct 38.2 (34.0-46.0) % MCV 88.7 (80.0-100.0) fL MCH 29.3 (25.0-35.0) pg MCHC 33.1 (31.0-37.0) g/dL RDW 14.8 (11.5-15.5) % Plt Count 241 (150-450) k/uL Neutrophils % 71 % Lymphocytes % 20 % Monocytes % 5 % Eosinophils % 2 % Basophils % 0 % Neutrophils # 5.7 (1.3-7.7) k/uL Lymphocytes # 1.6 (1.0-4.8) k/uL Monocytes # 0.4 (0-1.0) k/uL Eosinophils # 0.2 (0-0.7) k/uL Basophils # 0.0 (0-0.2) k/uL Sodium 141 (137-145) mmol/L Potassium 4.2 (3.5-5.1) mmol/L Chloride 108 H (98-107) mmol/L Carbon Dioxide 24 (22-30) mmol/L Anion Gap 9 mmol/L BUN 29 H (7-17) mg/dL Creatinine 0.75 (0.52-1.04) mg/dL Est GFR (CKD-EPI)AfAm >90 (>60 ml/min/1.73 sqM) Est GFR (CKD-EPI)NonAf >90 (>60 ml/min/1.73 sqM) Glucose 112 H (74-99) mg/dL Calcium 8.8 (8.4-10.2) mg/dL Total Bilirubin 0.5 (0.2-1.3) mg/dL AST 95 H (14-36) U/L ALT 52 (9-52) U/L Alkaline Phosphatase 80 (38-126) U/L Troponin I <0.012 (0.000-0.034) ng/mL Total Protein 6.7 (6.3-8.2) g/dL Albumin 3.9 (3.5-5.0) g/dL Amylase 62 (30-110) U/L Lipase 113 (23-300) U/L Urine Color Urine Appearance (Clear) Urine pH (5.0-8.0) Ur Specific [place] (1.001-1.035) Urine Protein (Negative) Urine Glucose (UA) (Negative) Urine Ketones (Negative) Urine Blood (Negative) Urine Nitrite (Negative) Urine Bilirubin (Negative) Urine Urobilinogen (<2.0) mg/dL Ur Leukocyte Esterase (Negative) Urine RBC (0-5) /hpf Urine WBC (0-5) /hpf Ur Squamous Epith Cells (0-4) /hpf Urine Mucus (None) /hpf 11/18/18 Range/Units 18:42 WBC (3.8-10.6) k/uL RBC (3.80-5.40) m/uL Hgb (11.4-16.0) gm/dL Hct (34.0-46.0) % MCV (80.0-100.0) fL MCH (25.0-35.0) pg MCHC (31.0-37.0) g/dL RDW (11.5-15.5) % Plt Count (150-450) k/uL Neutrophils % % Lymphocytes % % Monocytes % % Eosinophils % % Basophils % % Neutrophils # (1.3-7.7) k/uL Lymphocytes # (1.0-4.8) k/uL Monocytes # (0-1.0) k/uL Eosinophils # (0-0.7) k/uL Basophils # (0-0.2) k/uL Sodium (137-145) mmol/L Potassium (3.5-5.1) mmol/L Chloride (98-107) mmol/L Carbon Dioxide (22-30) mmol/L Anion Gap mmol/L BUN (7-17) mg/dL Creatinine (0.52-1.04) mg/dL Est GFR (CKD-EPI)AfAm (>60 ml/min/1.73 sqM) Est GFR (CKD-EPI)NonAf (>60 ml/min/1.73 sqM) Glucose (74-99) mg/dL Calcium (8.4-10.2) mg/dL Total Bilirubin (0.2-1.3) mg/dL AST (14-36) U/L ALT (9-52) U/L Alkaline Phosphatase (38-126) U/L Troponin I (0.000-0.034) ng/mL Total Protein (6.3-8.2) g/dL Albumin (3.5-5.0) g/dL Amylase (30-110) U/L Lipase (23-300) U/L Urine Color Yellow Urine Appearance Clear (Clear) Urine pH 7.0 (5.0-8.0) Ur Specific [place] 1.027 (1.001-1.035) Urine Protein Trace H (Negative) Urine Glucose (UA) Negative (Negative) Urine Ketones Negative (Negative) Urine Blood Small H (Negative) Urine Nitrite Negative (Negative) Urine Bilirubin Negative (Negative) Urine Urobilinogen 4.0 (<2.0) mg/dL Ur Leukocyte Esterase Small H (Negative) Urine RBC 12 H (0-5) /hpf Urine WBC 3 (0-5) /hpf Ur Squamous Epith Cells 2 (0-4) /hpf Urine Mucus Rare H (None) /hpf - Radiology Data Ultrasound of the right upper quadrant was obtained. Report was reviewed in its entirety. Impression by Dr. Mccormack shows 2 similar stone at the gallbladder neck. Large common bile duct consistent with gallbladder dysfunction. No dilated intrahepatic bile ducts. (Emilie Hercules) Disposition <Enrique Darden - Last Filed: 11/18/18 20:47> Decision to Admit Reason: Admit from EC Decision Date: 11/18/18 Decision Time: 20:58 <Emilie Hercules - Last Filed: 11/18/18 20:58> Clinical Impression: Cholelithiasis, Dysfunctional gallbladder Disposition: ADMITTED IP TO THIS [facility] Condition: Serious Referrals: Sunday Brown MD [Primary Care Provider] - 1-2 days
[2018-11-18 19:13] LABS: Basophils % (A) 0 %; Eosinophils # (A) 0.2 k/uL (0-0.7); Eosinophils % (A) 2 %; HCT 38.2 % (34.0-46.0); HGB 12.6 gm/dL (11.4-16.0); Lymphocytes # (A) 1.6 k/uL (1.0-4.8); Lymphocytes % (A) 20 %; MCH 29.3 pg (25.0-35.0); MCHC 33.1 g/dL (31.0-37.0); MCV 88.7 fL (80.0-100.0); Mean Platelet Volume 6.7; Monocytes # (A) 0.4 k/uL (0-1.0); Monocytes % (A) 5 %; Neutrophils # (A) 5.7 k/uL (1.3-7.7); Neutrophils % (A) 71 %; Platelet Count 241 k/uL (150-450); RBC 4.31 m/uL (3.80-5.40); RDW 14.8 % (11.5-15.5); WBC 8.1 k/uL (3.8-10.6)
[2018-11-18 19:18] LABS: Appearance,Urine Clear (Clear); Bilirubin,Urine Negative (Negative); Blood,Urine Small (Negative); Color,Urine Yellow; Glucose,Urine (UA) Negative (Negative); Ketones,Urine Negative (Negative); Leukocyte Esterase,Urine Small (Negative); Mucus,Urine Rare /hpf; Nitrite,Urine Negative (Negative); Protein,Urine Trace (Negative); RBC,Urine 12 /hpf (0-5); Specific Gravity,Urine 1.027 (1.001-1.035); Squamous Epithelial Cell,Urine 2 /hpf (0-4); WBC,Urine 3 /hpf (0-5)
[2018-11-18 19:30] LABS: ALT 52 U/L (9-52); AST 95 U/L (14-36); African American GFR (CKD) >90 (>60 ml/min/1.73 sqM); Albumin 3.9 g/dL (3.5-5.0); Alkaline Phosphatase 80 U/L (38-126); Amylase 62 U/L (30-110); Anion Gap 9 mmol/L; Blood Urea Nitrogen 29 mg/dL (7-17); Calcium 8.8 mg/dL (8.4-10.2); Carbon Dioxide 24 mmol/L (22-30); Chloride 108 mmol/L (98-107); Glucose 112 mg/dL (74-99); Sodium 141 mmol/L (137-145); Total Bilirubin 0.5 mg/dL (0.2-1.3); Total Protein 6.7 g/dL (6.3-8.2)
[2018-11-18 19:31] LABS: Potassium 4.2 mmol/L (3.5-5.1)
--- NOTE | 2018-11-18 19:33 | US ---
EXAMINATION TYPE: US abdomen limited DATE OF EXAM: 11/18/2018 COMPARISON: NONE CLINICAL HISTORY: Pain. Epigastric pain, nausea EXAM MEASUREMENTS: Liver Length: 15.5 cm Gallbladder Wall: 0.3 cm CBD: 0.7 cm Right Kidney: 12.0 x 3.8 x 4.6 cm Pancreas: duct = 0.3cm Liver: appears wnl Gallbladder: stone near neck = 2.4cm Evidence for sonographic Lopez's sign: yes CBD: dilated Right Kidney: no evidence of hydronephrosis IMPRESSION: There is a 2 cm stone at the gallbladder neck. Large common bile duct consistent with gal lbladder dysfunction. No dilated intrahepatic bile ducts.
[2018-11-18] MEDS ORDERED: NALOXONE 0.4 MG/ML 1 ML VIAL IV PRN (20:52)
[2018-11-18] MEDS ORDERED: PIPERACILLIN-TAZOBACTAM 3.375 GM in SODIUM CHLORIDE 0.9% 100 ML IVPB STA (20:55)
[2018-11-18] MEDS ORDERED: PIPERACILLIN-TAZOBACTAM 3.375 GM in SODIUM CHLORIDE 0.9% 100 ML IVPB ONE (21:18)
[2018-11-18] MEDS: SODIUM CHLORIDE 0.9% 1,000 ML IV SCH (23:57)
[2018-11-18] MEDS: HYDROmorphone 1 MG/ML 1 ML SYRINGE IVP PRN (23:59)
[2018-11-19] MEDS: PIPERACILLIN-TAZOBACTAM 3.375 GM in SODIUM CHLORIDE 0.9% 100 ML IVPB SCH ×3 (05:43→21:25)
[2018-11-19 07:49] LABS: Basophils % (A) 0 %; Eosinophils # (A) 0.1 k/uL (0-0.7); Eosinophils % (A) 3 %; HCT 35.5 % (34.0-46.0); HGB 11.9 gm/dL (11.4-16.0); Lymphocytes # (A) 1.4 k/uL (1.0-4.8); Lymphocytes % (A) 27 %; MCH 30.3 pg (25.0-35.0); MCHC 33.6 g/dL (31.0-37.0); MCV 90.1 fL (80.0-100.0); Mean Platelet Volume 6.6; Monocytes # (A) 0.4 k/uL (0-1.0); Monocytes % (A) 7 %; Neutrophils # (A) 3.1 k/uL (1.3-7.7); Neutrophils % (A) 60 %; Platelet Count 207 k/uL (150-450); RBC 3.94 m/uL (3.80-5.40); WBC 5.2 k/uL (3.8-10.6)
[2018-11-19 08:06] LABS: ALT 283 U/L (9-52); AST 346 U/L (14-36); African American GFR (CKD) >90 (>60 ml/min/1.73 sqM); Albumin 3.1 g/dL (3.5-5.0); Alkaline Phosphatase 95 U/L (38-126); Anion Gap 5 mmol/L; Blood Urea Nitrogen 19 mg/dL (7-17); Calcium 8.1 mg/dL (8.4-10.2); Carbon Dioxide 24 mmol/L (22-30); Chloride 112 mmol/L (98-107); Glucose 94 mg/dL (74-99); Potassium 4.2 mmol/L (3.5-5.1); Sodium 141 mmol/L (137-145); Total Bilirubin 0.6 mg/dL (0.2-1.3); Total Protein 5.5 g/dL (6.3-8.2)
[2018-11-19] MEDS: IOPAMIDOL-300 CONTRAST 30 ML VIAL (ORAL USE) PO PRN ×2 (10:56→12:14)
--- NOTE | 2018-11-19 13:49 | CT ---
EXAMINATION TYPE: CT abdomen pelvis w con DATE OF EXAM: 11/19/2018 HISTORY: Increased liver enzymes CT DLP: 1854.7mGycm Automated Exposure Control for Dose Reduction was Utilized. CONTRAST: CT scan of the abdomen and pelvis is performed with IV Contrast, patient injected with 100 ml mL of I sovue 300. COMPARISON: CT urogram November 18, 2016 FINDINGS: LUNG BASES: No significant abnormality is appreciated. LIVER/GB: Large intraluminal gallstone is redemonstrated. Gallbladder has some distended margins with out significant surrounding fat stranding. No suspicious new intrahepatic or extrahepatic biliary dil atation identified PANCREAS: No significant abnormality is seen. SPLEEN: No significant abnormality is seen. ADRENALS: No significant abnormality is seen. KIDNEYS: No significant abnormality is seen. BOWEL: Oral contrast reaches the level of the mid transverse colon. There is no suspicious small or l arge bowel dilatation. Terminal ileum felt within normal limits. Normal contrast-filled appendix seen posteriorly from the cecum. Few diverticula in sigmoid colon. No CT evidence for acute diverticuliti s. UTERUS/ADNEXA: Uterus surgically absent or markedly atrophic. LYMPH NODES: No greater than 1cm abdominal or pelvic lymph nodes are appreciated. OSSEOUS STRUCTURES: No significant abnormality is seen. OTHER: No significant additional abnormality is seen. IMPRESSION: Large gallstone redemonstrated. No CT evidence for acute cholecystitis. No suspicious new intrahepatic mass or ductal dilatation.
[2018-11-19] MEDS: SODIUM CHLORIDE 0.9% 1,000 ML IV SCH (18:36)
[2018-11-19] MEDS: HEPARIN SODIUM,PORCINE 5,000 UNIT/ML 1 ML VIAL SQ SCH ×2 (18:49→23:08)
[2018-11-19] MEDS: FAMOTIDINE 20 MG/2 ML VIAL IV SCH (21:25)
--- NOTE | 2018-11-19 22:25 | P.CONS ---
History of Present Illness - Reason for Consult Consult date: 11/19/18 Medical management - Chief Complaint Abdominal pain - History of Present Illness Patient is a 57-year-old female with a known history of rheumatoid arthritis on methotrexate every weekly, osteoarthritis and IBS came to ER with complaints of abdominal pain mainly left upper abdomen, sharp pain and gradually extending into the epigastric region. Denied any associated nausea or vomiting. Denied any fever or chills. Denied any recent illnesses. No dysuria or hematuria no diarrhea. Patient says that she had similar pain mainly left lower quadrant abdominal about 20 years ago and had to call EMS at that time. They were unable to find diagnosis at that time. No complaints of chest pain or shortness of breath. No headache or dizziness or lightheadedness. No orthopnea no PND. Patient states that she was driving herself here in the pain became so bad she was unable to breathe. 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 CT of the abdominal showed large gallstone redemonstrated. No CT evidence for acute cholecystitis. No suspicious new intrahepatic mass or ductal dilation. Ultrasound of the abdomen showed there is a 2 cm stone at the gallbladder neck. Large common bile duct consistent with gallbladder dysfunction. No dilated intrahepatic bile ducts. AST and ALT 95 and 52 on admission. AST and ALT increased to 346 and [address] morning. Patient had CT chest this morning. Review of Systems Constitutional: Patient denies any fever or chills . No generalized weakness or weight loss. Abdomen: Patient denied nausea vomiting and diarrhea and patient does have epigastric abdominal pain. Cardiovascular: Patient denies any chest pain or short of breath no palpitations. Respiratory: patient denied any cough is from production. No shortness of breath Neurologic: Patient denied any numbness or tingling headache. Musculoskeletal: Patient denies any complaints of joint swelling or deformity. Skin: Negative Psychiatric: Negative Endocrine: No heat or cold intolerance. No recent weight gain. Genitourinary: No dysuria or hematuria. All other 14 point ROS negative except the above Past Medical History Past Medical History: Rheumatoid Arthritis (RA) History of Any Multi-Drug Resistant Organisms: None Reported Past Surgical History: Hysterectomy, Orthopedic Surgery Additional Past Surgical History / Comment(s): r-knee, l-shoulder scopes Past Anesthesia/Blood Transfusion Reactions: No Reported Reaction Past Psychological History: No Psychological Hx Reported Smoking Status: Never smoker Past Alcohol Use History: Occasional Past Drug Use History: None Reported - Past Family History Mother Family Medical History: No Reported History Father Family Medical History: Unable to Obtain Medications and Allergies Home Medications Medication Instructions Recorded Confirmed Type Lysine [l-Lysine] 500 mg PO MOTUWETHFRSA 10/06/16 11/18/18 History Folic Acid 1 mg PO MOTUWETHFRSA 11/18/18 11/18/18 History Ibuprofen [Advil] 400 mg PO Q8HR PRN 11/18/18 11/18/18 History Methotrexate Sodium [Methotrexate] 12.5 mg PO MARTINEZ 11/18/18 11/18/18 History Allergies Allergy/AdvReac Type Severity Reaction Status Date / Time aspirin AdvReac stomach Verified 11/18/18 21:28 pain latex AdvReac Rash/Hives Verified 11/18/18 21:28 with blisters Physical Exam Vitals: Vital Signs Temp Pulse Pulse Resp BP BP Pulse Ox 11/19/18 07:00 97.6 F 54 L 15 116/69 98 11/19/18 01:10 97.5 F L 75 16 147/84 99 11/18/18 22:34 67 18 121/83 100 11/18/18 18:29 97.6 F 83 14 129/70 100 Intake and Output 11/18/18 11/19/18 11/19/18 22:59 06:59 14:59 Intake Total 500 Balance 500 Intake: Intake, IV Titration 500 Amount Sodium Chloride 0.9% 1, 500 000 ml @ 50 mls/hr IV . Q20H [facility] Rx#:[id number] Other: # Voids 2 Weight 99.79 kg PHYSICAL EXAMINATION: Patient is lying in the bed comfortably, no acute distress, awake alert and oriented.. HEENT: Normocephalic. Neck is supple. Pupils reactive. Nostrils clear. Oral cavity is moist. Ears reveal no drainage. Neck reveals no JVD, carotid bruits, or thyromegaly. CHEST EXAMINATION: Trachea is central. Symmetrical expansion. Lung polk clear to auscultation and percussion. CARDIAC: Normal S1, S2 with no gallops. No murmurs ABDOMEN: Soft. Bowel sounds normal. No organomegaly. No abdominal bruits. Extremities: reveal no edema. No clubbing or cyanosis Neurologically awake, alert, oriented x3 with well-coordinated movements. No focal deficits noted Skin: No rash or skin lesions. Psychiatric: Coperative. Nonsuicidal Musculoskeletal: No joint swelling or deformity. Normal range of motion. Results CBC & Chem 7: 11/19/18 07:21 11/19/18 07:21 Labs: Abnormal Lab Results - Last 24 Hours (Table) 11/18/18 11/18/18 11/19/18 Range/Units 18:42 18:42 07:21 Chloride 108 H 112 H (98-107) mmol/L BUN 29 H 19 H (7-17) mg/dL Glucose 112 H (74-99) mg/dL Calcium 8.1 L (8.4-10.2) mg/dL AST 95 H 346 H (14-36) U/L ALT 283 H (9-52) U/L Total Protein 5.5 L (6.3-8.2) g/dL Albumin 3.1 L (3.5-5.0) g/dL Urine Protein Trace H (Negative) Urine Blood Small H (Negative) Ur Leukocyte Esterase Small H (Negative) Urine RBC 12 H (0-5) /hpf Urine Mucus Rare H (None) /hpf Assessment and Plan Assessment: Dilated bile duct with possible Choledocholithiasis and passage of stone. Elevated liver enzymes Large gallstone Rheumatoid arthritis Osteoarthritis DVT prophylaxis with heparin subcu Plan: Patient will be continued on pain management, IV hydration and continue with symptomatic management. CT abdomen showed no evidence of acute cholecystitis. Gen. surgery is on board. Continue with the DVT and GI prophylaxis. Further recommendations based on the clinical course. Time with Patient: Greater than 30
[2018-11-20] MEDS: PIPERACILLIN-TAZOBACTAM 3.375 GM in SODIUM CHLORIDE 0.9% 100 ML IVPB SCH ×3 (05:22→20:10)
[2018-11-20] MEDS: FAMOTIDINE 20 MG/2 ML VIAL IV SCH ×2 (07:47→20:09)
[2018-11-20] MEDS: ONDANSETRON 4 MG/2 ML VIAL IVP PRN (07:47)
[2018-11-20] MEDS: HEPARIN SODIUM,PORCINE 5,000 UNIT/ML 1 ML VIAL SQ SCH ×2 (07:47→15:18)
[2018-11-20] MEDS: HYDROmorphone 1 MG/ML 1 ML SYRINGE IVP PRN ×2 (07:48→07:53)
[2018-11-20] MEDS: FOLIC ACID 1 MG TAB PO SCH (08:15)
[2018-11-20 08:33] LABS: Basophils % (A) 1 %; Eosinophils # (A) 0.2 k/uL (0-0.7); Eosinophils % (A) 3 %; HCT 39.4 % (34.0-46.0); HGB 13.1 gm/dL (11.4-16.0); Lymphocytes # (A) 1.2 k/uL (1.0-4.8); Lymphocytes % (A) 22 %; MCH 29.9 pg (25.0-35.0); MCHC 33.1 g/dL (31.0-37.0); MCV 90.3 fL (80.0-100.0); Mean Platelet Volume 6.6; Monocytes # (A) 0.3 k/uL (0-1.0); Monocytes % (A) 6 %; Neutrophils # (A) 3.8 k/uL (1.3-7.7); Neutrophils % (A) 67 %; Platelet Count 224 k/uL (150-450); RBC 4.37 m/uL (3.80-5.40); RDW 15.2 % (11.5-15.5); WBC 5.6 k/uL (3.8-10.6)
[2018-11-20 08:46] LABS: ALT 289 U/L (9-52); AST 149 U/L (14-36); African American GFR (CKD) >90 (>60 ml/min/1.73 sqM); Albumin 3.8 g/dL (3.5-5.0); Alkaline Phosphatase 139 U/L (38-126); Anion Gap 9 mmol/L; Blood Urea Nitrogen 11 mg/dL (7-17); Carbon Dioxide 23 mmol/L (22-30); Chloride 112 mmol/L (98-107); Glucose 105 mg/dL (74-99); Potassium 3.7 mmol/L (3.5-5.1); Sodium 144 mmol/L (137-145); Total Bilirubin 0.6 mg/dL (0.2-1.3); Total Protein 6.6 g/dL (6.3-8.2)
--- NOTE | 2018-11-20 14:33 | P.PN ---
Subjective Progress Note Date: 11/20/18 Principal diagnosis: Cholecystitis Patient complaining of mild nausea. Her upper abdominal pain is improved. Bilirubin and AST improved, ALT and alkaline phosphatase increased. CAT scan was performed last night which showed cholelithiasis but no other abnormalities. GI was consulted after this morning's labs showed persistent abnormalities. Objective - Vital Signs Vital signs: Vital Signs Temp 97.5 F L 11/20/18 07:00 Pulse 78 11/20/18 07:00 Resp 16 11/20/18 07:00 BP 130/86 11/20/18 07:00 Pulse Ox 97 11/20/18 07:00 Intake & Output 11/19/18 11/20/18 11/20/18 18:59 06:59 18:59 Intake Total 240 800 400 Balance 240 800 400 Intake: Intake, IV Titration 500 400 Amount Piperacillin-Tazobactam 3 100 .375 gm In Sodium Chloride 0.9% 100 ml @ 25 mls/hr IVPB Q8H [facility] Rx#: [id number] Sodium Chloride 0.9% 1, 500 300 000 ml @ 50 mls/hr IV . Q20H [facility] Rx#:[id number] Oral 240 300 Other: # Voids 1 2 2 - Exam Abdomen abdomen: Soft, nondistended, mild epigastric and right upper quadrant tenderness - Labs CBC & Chem 7: 11/20/18 08:07 11/20/18 08:07 Labs: Abnormal Lab Results - Last 24 Hours (Table) 11/20/18 Range/Units 08:07 Chloride 112 H (98-107) mmol/L Glucose 105 H (74-99) mg/dL AST 149 H (14-36) U/L ALT 289 H (9-52) U/L Alkaline Phosphatase 139 H (38-126) U/L Assessment and Plan (1) Cholecystitis Narrative/Plan: MRCP ordered at this time to rule out choledocholithiasis given the elevated liver enzymes. Recheck labs tomorrow. Await GI evaluation. Of note I don't see that the history and physical that I dictated yesterday is on the system. I don't have an explanation for that. Will redictate H&P. Current Visit: Yes Status: Acute Code(s): K81.9 - CHOLECYSTITIS, UNSPECIFIED SNOMED Code(s): 35980833
--- NOTE | 2018-11-20 14:36 | P.GSHP ---
History of Present Illness H&P Date: 11/20/18 Chief Complaint: Cholecystitis This is a redictation from yesterday's H&P that I cannot find in the system. Patient was seen yesterday morning. We actually had her set up for cholecystectomy. Yesterday's labs however came back elevated and surgery was placed on hold. CAT scan was ordered at that time. Initially presented with pain in the epigastric and left upper quadrant. Was more tender however in the right upper quadrant per the ER staff. Ultrasound was performed showing a large 2 cm stone at the gallbladder neck. Pain was so bad that she had difficulty breathing. Some nausea and vomiting. No change in the color of her skin urine or stool. No fevers. Initial labs showed a slightly elevated AST. - Review of Systems Comment: The patient denies any acute changes in vision or hearing, no dysphagia or odynophagia, no chest pain or shortness of breath, no dysuria or hematuria, no headache, no runny nose, no rectal bleeding or melena, no unexplained weight loss Past Medical History Past Medical History: Rheumatoid Arthritis (RA) History of Any Multi-Drug Resistant Organisms: None Reported Past Surgical History: Hysterectomy, Orthopedic Surgery Additional Past Surgical History / Comment(s): r-knee, l-shoulder scopes Past Anesthesia/Blood Transfusion Reactions: No Reported Reaction Past Psychological History: No Psychological Hx Reported Smoking Status: Never smoker Past Alcohol Use History: Occasional Past Drug Use History: None Reported - Past Family History Mother Family Medical History: No Reported History Father Family Medical History: Unable to Obtain Medications and Allergies Home Medications Medication Instructions Recorded Confirmed Type RX: Lysine [l-Lysine] 500 mg PO MOTUWETHFRSA 10/06/16 11/18/18 History Ibuprofen [Advil] 400 mg PO Q8HR PRN 11/18/18 11/18/18 History Methotrexate Sodium [Methotrexate] 12.5 mg PO MARTINEZ 11/18/18 11/18/18 History RX: Folic Acid 1 mg PO MOTUWETHFRSA 11/18/18 11/18/18 History Allergies Allergy/AdvReac Type Severity Reaction Status Date / Time aspirin AdvReac stomach Verified 11/18/18 21:28 pain latex AdvReac Rash/Hives Verified 11/18/18 21:28 with blisters Surgical - Exam Vital Signs Temp Pulse Resp BP Pulse Ox 97.6 F 83 14 129/70 100 11/18/18 18:29 11/18/18 18:29 11/18/18 18:29 11/18/18 18:29 11/18/18 18:29 Physical exam: General: Well-developed, well-nourished HEENT: Normocephalic, sclerae nonicteric Abdomen: Epigastric tenderness, nondistended Extremities: No edema Neuro: Alert and oriented Results - Labs 11/20/18 08:07 11/20/18 08:07 Abnormal Lab Results - Last 24 Hours (Table) 11/20/18 Range/Units 08:07 Chloride 112 H (98-107) mmol/L Glucose 105 H (74-99) mg/dL AST 149 H (14-36) U/L ALT 289 H (9-52) U/L Alkaline Phosphatase 139 H (38-126) U/L Diabetes panel 11/20/18 Range/Units 08:07 Sodium 144 (137-145) mmol/L Potassium 3.7 (3.5-5.1) mmol/L Chloride 112 H (98-107) mmol/L Carbon Dioxide 23 (22-30) mmol/L BUN 11 (7-17) mg/dL Creatinine 0.81 (0.52-1.04) mg/dL Glucose 105 H (74-99) mg/dL Calcium 9.0 (8.4-10.2) mg/dL AST 149 H (14-36) U/L ALT 289 H (9-52) U/L Alkaline Phosphatase 139 H (38-126) U/L Total Protein 6.6 (6.3-8.2) g/dL Albumin 3.8 (3.5-5.0) g/dL Calcium panel 11/20/18 Range/Units 08:07 Calcium 9.0 (8.4-10.2) mg/dL Albumin 3.8 (3.5-5.0) g/dL Pituitary panel 11/20/18 Range/Units 08:07 Sodium 144 (137-145) mmol/L Potassium 3.7 (3.5-5.1) mmol/L Chloride 112 H (98-107) mmol/L Carbon Dioxide 23 (22-30) mmol/L BUN 11 (7-17) mg/dL Creatinine 0.81 (0.52-1.04) mg/dL Glucose 105 H (74-99) mg/dL Calcium 9.0 (8.4-10.2) mg/dL Adrenal panel 11/20/18 Range/Units 08:07 Sodium 144 (137-145) mmol/L Potassium 3.7 (3.5-5.1) mmol/L Chloride 112 H (98-107) mmol/L Carbon Dioxide 23 (22-30) mmol/L BUN 11 (7-17) mg/dL Creatinine 0.81 (0.52-1.04) mg/dL Glucose 105 H (74-99) mg/dL Calcium 9.0 (8.4-10.2) mg/dL Total Bilirubin 0.6 (0.2-1.3) mg/dL AST 149 H (14-36) U/L ALT 289 H (9-52) U/L Alkaline Phosphatase 139 H (38-126) U/L Total Protein 6.6 (6.3-8.2) g/dL Albumin 3.8 (3.5-5.0) g/dL Assessment and Plan (1) Cholecystitis Narrative/Plan: CT abdomen and pelvis ordered given the elevated liver enzymes. Repeat labs tomorrow. Current Visit: Yes Status: Acute Code(s): K81.9 - CHOLECYSTITIS, UNSPECIFIED SNOMED Code(s): 42758062
[2018-11-20] MEDS: SODIUM CHLORIDE 0.9% 1,000 ML IV SCH (15:16)
[2018-11-20] MEDS ORDERED: ACETAMINOPHEN IV (For NPO) 1,000 MG in EMPTY BAG 1 BAG IVPB PRN (18:56)
--- NOTE | 2018-11-20 19:23 | MR ---
EXAMINATION TYPE: MR MRCP DATE OF EXAM: 11/20/2018 COMPARISON: HISTORY: Abdominal pain, Evaluate for elevated liver enzymes Standard multiplanar, multisequence MRI departmental protocol MRCP images of the abdomen were obtained without contrast. FINDINGS: Liver has normal size and contour. Spleen appears normal. Gallbladder is large and measures 4 cm in diameter. There is a single large 3 cm gallstone. The bile ducts are not dilated. I see no f illing defect in the biliary tree. Common bile duct measures 5 mm. There is good visualization of the biliary tree. Pancreas appears normal. Pancreatic duct is not dilated. Kidneys have normal size and contour. There is no hydronephrosis. There is no sign of retroperitoneal adenopathy. There is no evidence of pleural effusion. There is no evidence of adrenal mass. IMPRESSION: Large gallstone. No dilated ducts. No evidence of acute cholecystitis. Normal liver.
--- NOTE | 2018-11-20 20:31 | P.CONS ---
History of Present Illness - Reason for Consult Consult date: 11/20/18 Possible choledocholithiasis Requesting physician: Zhen Mills - Chief Complaint Abdominal pain - History of Present Illness 57-year-old female with a known history of rheumatoid arthritis on methotrexate therapy, osteoarthritis and IBS who presented to hospital with complaints of abdominal pain. The patient reported rapidly progressing, severe abdominal pain the epigastric region of her abdomen and into the right upper quadrant of her abdomen. It was described as sharp in quality occurring approximately 3 hours after eating and associated fracture-like sensation making it difficult for the patient to breathe. She had no associated nausea, vomiting, fevers or chills during the episode. However she does report some vomiting this morning. Evaluation in the hospital was significant for WBC 5.6, hemoglobin 13.1, platelet count 224,000, creatinine 0.8, with total bilirubin 0.6 from 0.6 previously, alkaline phosphatase 139 from 95 previously, AST 149 from 346 previously and ALT 289 from 283 previously. Computed tomography scan of the abdomen was significant for a large gallstone an ultrasound of the abdomen showed a 2 cm stone in the gallbladder neck. Review of Systems REVIEW OF SYSTEMS: CONSTITUTIONAL: Denies any fevers, chills, weight change or fatigue. CARDIOVASCULAR: Denies any chest pain, palpitations high or low blood pressures RESPIRATORY: Denies any hemoptysis or cough, but does report the pain associated, shortness of breath. GENITOURINARY: No dysuria or hematuria. MUSCULOSKELETAL: No weakness reported. SKIN: Denies any new rashes or lesions, jaundice or pallor. PSYCHIATRIC: Denies any depression or anxiety. NEUROLOGY: Denies headache, denies any new focal deficits. EARS/NOSE/THROAT: No recent hearing change, congestion, nasal discharge or sore throat. EYES: No pain in eyes, discharge or change in vision. GASTROINTESTINAL: As per HPI. Past Medical History Past Medical History: Rheumatoid Arthritis (RA) History of Any Multi-Drug Resistant Organisms: None Reported Past Surgical History: Hysterectomy, Orthopedic Surgery Additional Past Surgical History / Comment(s): r-knee, l-shoulder scopes Past Anesthesia/Blood Transfusion Reactions: No Reported Reaction Past Psychological History: No Psychological Hx Reported Smoking Status: Never smoker Past Alcohol Use History: Occasional Past Drug Use History: None Reported Additional History: Family history: Reviewed with the patient in noncontributory to current medical presentation. - Past Family History Mother Family Medical History: No Reported History Father Family Medical History: Unable to Obtain Medications and Allergies Home Medications Medication Instructions Recorded Confirmed Type Lysine [l-Lysine] 500 mg PO MOTUWETHFRSA 10/06/16 11/18/18 History Folic Acid 1 mg PO MOTUWETHFRSA 11/18/18 11/18/18 History Ibuprofen [Advil] 400 mg PO Q8HR PRN 11/18/18 11/18/18 History Methotrexate Sodium [Methotrexate] 12.5 mg PO MARTINEZ 11/18/18 11/18/18 History Allergies Allergy/AdvReac Type Severity Reaction Status Date / Time aspirin AdvReac stomach Verified 11/18/18 21:28 pain latex AdvReac Rash/Hives Verified 11/18/18 21:28 with blisters Physical Exam Vitals: Vital Signs Temp Pulse Resp BP Pulse Ox 11/20/18 15:00 97.6 F 74 16 139/83 98 11/20/18 07:00 97.5 F L 78 16 130/86 97 11/20/18 01:00 98.0 F 76 18 108/67 97 Intake and Output 11/20/18 11/20/18 11/20/18 06:59 14:59 22:59 Intake Total 500 400 Balance 500 400 Intake: Intake, IV Titration 500 400 Amount Piperacillin-Tazobactam 3 100 .375 gm In Sodium Chloride 0.9% 100 ml @ 25 mls/hr IVPB Q8H [facility] Rx#: [id number] Sodium Chloride 0.9% 1, 500 300 000 ml @ 50 mls/hr IV . Q20H [facility] Rx#:[id number] Other: # Voids 2 2 On physical examination, patient appears comfortable in no apparent distress. HEAD: Normocephalic, atraumatic. EYES: No scleral icterus. No conjunctival injection. MOUTH: No lesions, tongue midline. NECK: Trachea midline, no gross abnormalities. CHEST: Clear to auscultation with no wheezing or rhonchi appreciated. HEART: Regular rate and rhythm. ABDOMEN: Soft, obese with tenderness to palpation worse in the right upper quadrant. Bowel sounds are positive. No organomegaly. No guarding or rigidity. EXTREMITIES: No pedal edema. SKIN: No rashes, no jaundice. NEUROLOGIC: Alert and oriented x3. No focal deficits. Results CBC & Chem 7: 11/20/18 08:07 11/20/18 08:07 Labs: Abnormal Lab Results - Last 24 Hours (Table) 11/20/18 Range/Units 08:07 Chloride 112 H (98-107) mmol/L Glucose 105 H (74-99) mg/dL AST 149 H (14-36) U/L ALT 289 H (9-52) U/L Alkaline Phosphatase 139 H (38-126) U/L CT scan - abdomen: report reviewed (Computed tomography scan of the abdomen significant for a large 2 cm ulcer in the neck of the gallbladder, also seen on ultrasound abdomen) Assessment and Plan (1) Elevated liver enzymes Narrative/Plan: 57-year-old female who presented with abdominal pain and has been found to have large gallstone on ultrasound and computed tomography scan. Liver enzymes essentially normal on presentation trended up and are stable or improved today. Likely represents a passed stone with MRCP performed in evaluation negative for any biliary dilation or evidence of choledocholithiasis. Endoscopy related to antibiotics, or methotrexate use in the setting of rheumatoid arthritis although this is less likely given the acute rise in her liver numbers. Current Visit: Yes Status: Acute Code(s): R74.8 - ABNORMAL LEVELS OF OTHER SERUM ENZYMES SNOMED Code(s): 382785785 (2) Cholelithiasis Current Visit: Yes Status: Acute Code(s): K80.20 - CALCULUS OF GALLBLADDER W/O CHOLECYSTITIS W/O OBSTRUCTION SNOMED Code(s): 718349514 Plan: Supportive care Appreciate recommendations from surgical service Diet per surgical service Ultrasound abdomen, CT abdomen and MRCP reviewed with no evidence of choledo cholithiasis or dilated CBD No plans for ERCP at this time Continue to monitor CMP, CBC Timing of cholecystectomy to be determined by patient in the surgical service Thank you for allowing us to participate in the care of the patient, the GI service will stand by, please call us back with any questions or concerns
[2018-11-20] MEDS ORDERED: LYSINE 500 MG PO SCH (22:11)
[2018-11-21] MEDS: HEPARIN SODIUM,PORCINE 5,000 UNIT/ML 1 ML VIAL SQ SCH ×4 (00:09→23:47)
--- NOTE | 2018-11-21 01:00 | P.PN ---
Progress Note - Text Progress Note Date: 11/20/18 Presenting complaint: Abdominal pain Interval history: Patient admitted with abdominal pain.. Gallstone. Seen by surgery. GI was consulted earlier today. Some right upper abdominal pain is present. Some nausea was present. No fever no chills. Review of systems: Was done for constitutional, cardiovascular, GI, pulmonary. relevant finding as above Active Medications Famotidine (Pepcid) 20 mg IV Q12HR [facility] Last Admin: 11/20/18 20:09 Dose: 20 mg Documented by: Folic Acid (Folic Acid) 1 mg PO [id number] [facility] Last Admin: 11/20/18 08:15 Dose: Not Given Documented by: Heparin Sodium (Porcine) (Heparin) 5,000 unit SQ Q8HR [facility] Last Admin: 11/21/18 00:09 Dose: 5,000 unit Documented by: Hydromorphone HCl (Dilaudid) 1 mg IVP Q3HR PRN PRN Reason: Severe Pain Last Admin: 11/20/18 07:53 Dose: 0.5 mg Documented by: Piperacillin Sod/Tazobactam (Sod 3.375 gm/ Sodium Chloride) 100 mls @ 25 mls/hr IVPB Q8H [facility] Last Admin: 11/20/18 20:10 Dose: 25 mls/hr Documented by: Sodium Chloride (Saline 0.9%) 1,000 mls @ 50 mls/hr IV .Q20H [facility] Last Admin: 11/20/18 15:16 Dose: Not Given Documented by: Acetaminophen 1,000 mg/ IV (Solution) 100 mls @ 400 mls/hr IVPB Q6HR PRN PRN Reason: Analgesia Stop: 11/21/18 18:14 Naloxone HCl (Narcan) 0.2 mg IV Q2M PRN PRN Reason: Opioid Reversal Ondansetron HCl (Zofran) 4 mg IVP Q8HR PRN PRN Reason: Nausea And Vomiting Last Admin: 11/20/18 07:47 Dose: 4 mg Documented by: On examination: VITAL SIGNS: 97.6, 74, 16, 139 with 83, 98% GENERAL APPEARANCE: Laying in bed, slightly uncomfortable. HEENT: Normal external appearance of nose and ear. Oral cavity normal EYES: Pupils equal. Conjunctiva normal. NECK: JVD not raised. Mass not palpable. RESPIRATORY: Respiratory effort normal. Lungs clear to auscultation. CARDIOVASCULAR: First and second sounds normal. No edema. ABDOMEN: Soft. Right upper quadrant tenderness, no guarding or rigidity Liver and spleen not palpable. PSYCHIATRY: Alert and oriented x3. Mood and affect normal. INVESTIGATIONS, reviewed in the clinical context: White count 5.6 AST 149 ALT to 89 alk phos 139 Abdominal ultrasound-2 cm stone at the gallbladder neck CT abdomen and pelvis results noted. Showing gallstone MRCP-showing gallstone no dilated duct Assessment: -Choledocholithiasis, symptomatic -Obesity BMI 39 -Chronic rheumatoid arthritis -Obstructive hepatitis Plan: Patient is seen by me earlier this afternoon. GI was consulted. Awaiting their input. Care was discussed with the patient. Continue current medications for plan. Patient is on DVT prophylaxis and also getting IV fluids.. Thank you Dr. Mills
[2018-11-21] MEDS: SODIUM CHLORIDE 0.9% 1,000 ML IV SCH (02:26)
[2018-11-21] MEDS: PIPERACILLIN-TAZOBACTAM 3.375 GM in SODIUM CHLORIDE 0.9% 100 ML IVPB SCH ×3 (05:28→22:06)
[2018-11-21] MEDS: FAMOTIDINE 20 MG/2 ML VIAL IV SCH ×2 (07:28→20:26)
[2018-11-21] MEDS: FOLIC ACID 1 MG TAB PO SCH ×2 (07:28→07:31)
[2018-11-21 08:11] LABS: Basophils % (A) 0 %; Eosinophils # (A) 0.1 k/uL (0-0.7); Eosinophils % (A) 2 %; HCT 35.3 % (34.0-46.0); HGB 11.9 gm/dL (11.4-16.0); Lymphocytes # (A) 1.7 k/uL (1.0-4.8); Lymphocytes % (A) 28 %; MCHC 33.6 g/dL (31.0-37.0); MCV 89.2 fL (80.0-100.0); Mean Platelet Volume 6.5; Monocytes # (A) 0.3 k/uL (0-1.0); Monocytes % (A) 6 %; Neutrophils # (A) 3.7 k/uL (1.3-7.7); Neutrophils % (A) 62 %; Platelet Count 226 k/uL (150-450); RBC 3.95 m/uL (3.80-5.40)
[2018-11-21 08:45] LABS: ALT 179 U/L (9-52); AST 49 U/L (14-36); African American GFR (CKD) >90 (>60 ml/min/1.73 sqM); Albumin 3.3 g/dL (3.5-5.0); Alkaline Phosphatase 116 U/L (38-126); Anion Gap 6 mmol/L; Blood Urea Nitrogen 14 mg/dL (7-17); Calcium 8.7 mg/dL (8.4-10.2); Carbon Dioxide 25 mmol/L (22-30); Chloride 110 mmol/L (98-107); Glucose 91 mg/dL (74-99); Potassium 3.7 mmol/L (3.5-5.1); Sodium 141 mmol/L (137-145); Total Bilirubin 0.6 mg/dL (0.2-1.3); Total Protein 5.9 g/dL (6.3-8.2)
[2018-11-21] MEDS ORDERED: IV FLUID CONTINUATION 800 ML IV ONE (11:21)
[2018-11-21] MEDS ORDERED: DEXAMETHASONE SOD PHOSPHATE 10 MG/ML 1 ML VIAL IV ONE (11:32)
[2018-11-21] MEDS: ONDANSETRON 4 MG/2 ML VIAL IVP PRN ×2 (11:32→14:02)
[2018-11-21] MEDS ORDERED: HEPARIN SODIUM,PORCINE 5,000 UNIT/ML 1 ML VIAL SQ ONE (12:20)
[2018-11-21] MEDS ORDERED: SUCCINYLCHOLINE CHLORIDE 100 MG/5 ML SYR IV ONE (12:23)
[2018-11-21] MEDS ORDERED: NEOSTIGMINE 1 MG/ML 10 ML VIAL ONE (12:23)
[2018-11-21] MEDS ORDERED: GLYCOPYRROLATE 0.2 MG/ML 2 ML VIAL ONE (12:23)
[2018-11-21] MEDS ORDERED: PROPOFOL 10 MG/ML 20 ML VIAL IV ONE (12:23)
[2018-11-21] MEDS ORDERED: LIDOCAINE 1% INJ 10MG/ML (20 ML MDV) ONE (12:23)
[2018-11-21] MEDS ORDERED: KETOROLAC 30 MG/ML 1 ML VIAL ONE (12:23)
[2018-11-21] MEDS ORDERED: fentaNYL (PF) 50 MCG/ML 2 ML AMP ONE (12:23)
[2018-11-21] MEDS ORDERED: ROCURONIUM BROMIDE 10 MG/ML 10 ML VIAL IV ONE (12:23)
[2018-11-21] MEDS ORDERED: MIDAZOLAM 2 MG/2 ML VIAL ONE (12:23)
[2018-11-21] MEDS ORDERED: BUPIVACAIN-EPI 0.25%-1:200,000 30 ML VIAL SQ ONE ×2 (12:48)
[2018-11-21] MEDS ORDERED: LACTATED RINGERS 1,000 ML IV ONE (13:26)
[2018-11-21] MEDS: HYDROmorphone 1 MG/ML 1 ML SYRINGE IVP ONE ×2 (14:01→14:11)
--- NOTE | 2018-11-21 14:11 | P.OP ---
Date of Procedure: 11/21/18 Procedure(s) Performed: PREOPERATIVE DIAGNOSIS: Acute cholecystitis POSTOPERATIVE DIAGNOSIS: Same PROCEDURE: Laparoscopic cholecystectomy SURGEON: Gene EBL: Minimal see anesthesia record ANESTHESIA: Gen. COMPLICATIONS: None OPERATIVE PROCEDURE: The patient was brought and placed on the operating room table in the supine position. The patient was placed under general anesthesia at that time. The abdomen was prepped and draped in the usual sterile fashion. A small vertical infraumbilical incision was made. The fascia was grasped with the Kavitha forceps. The fascia was retracted anteriorly. The Veress needle was advanced into the peritoneal cavity. The saline drop test was normal. Insufflation took place up to 15 mmHg. A 5 mm optical trocar was advanced and the peritoneal cavity. 2 additional 5 mm trochars were placed in the right upper quadrant under direct visualization. A 12 mm trocar was advanced into the epigastric incision site. The gallbladder was edematous. There was no gangrenous changes. The gallbladder was retracted superiorly and laterally. The peritoneum overlying the infundibulum was bluntly dissected. The patient's cystic duct was visualized. The junction between the cystic duct common and hepatic duct was identified. The cystic duct was then divided after placement of 3 12 mm clips on the patient's side and one on the specimen side. The cystic artery was identified and clipped as well. A small vessel was seen along the gallbladder fossa and clipped as well. The gallbladder was then removed from the liver bed using electrocautery. The gallbladder was then removed from the epigastric trocar site with an Endo Catch bag. The gallbladder fossa was irrigated with saline. There was no evidence of any bleeding or biliary drainage seen. The fascia at the 12 millimeter site was closed using a Kirill- Carla 0 Vicryl stitch. The trochars were then removed. The skin at all 4 sites was closed using a 4-0 Monocryl stitch. Skin glue was utilized on the incision sites. At the end of this procedure the sponge and needle counts were correct. DISPOSITION: Stable to the recovery room
[2018-11-21] MEDS: HYDROcodone/APAP 5-325MG 1 EACH TAB PO PRN (20:52)
--- NOTE | 2018-11-22 00:04 | P.PN ---
Progress Note - Text Progress Note Date: 11/21/18 Presenting complaint: Abdominal pain Interval history: Patient admitted with abdominal pain.. Gallstone. Seen by surgery. Today-underwent cholecystectomy earlier today. Some pains present. Laying in bed. Daughter the bedside. No nausea vomiting. Review of systems: Was done for constitutional, cardiovascular, GI, pulmonary. relevant finding as above Active Medications Hydrocodone Bitart/Acetaminophen ([place] 5-325) 1 each PO Q4HR PRN PRN Reason: Pain Last Admin: 11/21/18 20:52 Dose: 1 each Documented by: Famotidine (Pepcid) 20 mg IV Q12HR [facility] Last Admin: 11/21/18 20:26 Dose: 20 mg Documented by: Folic Acid (Folic Acid) 1 mg PO [email or web address] [facility] Last Admin: 11/21/18 07:31 Dose: Not Given Documented by: Heparin Sodium (Porcine) (Heparin) 5,000 unit SQ Q8HR [facility] Last Admin: 11/21/18 23:47 Dose: 5,000 unit Documented by: Hydromorphone HCl (Dilaudid) 1 mg IVP Q3HR PRN PRN Reason: Severe Pain Last Admin: 11/20/18 07:53 Dose: 0.5 mg Documented by: Piperacillin Sod/Tazobactam (Sod 3.375 gm/ Sodium Chloride) 100 mls @ 25 mls/hr IVPB Q8H [facility] Last Admin: 11/21/18 22:06 Dose: 25 mls/hr Documented by: Sodium Chloride (Saline 0.9%) 1,000 mls @ 50 mls/hr IV .Q20H [facility] Last Admin: 11/21/18 02:26 Dose: 50 mls/hr Documented by: Naloxone HCl (Narcan) 0.2 mg IV Q2M PRN PRN Reason: Opioid Reversal Ondansetron HCl (Zofran) 4 mg IVP Q8HR PRN PRN Reason: Nausea And Vomiting Last Admin: 11/21/18 14:02 Dose: 4 mg Documented by: On examination: VITAL SIGNS: 96.9, 63, 20, 140/78, 97% room air GENERAL APPEARANCE: Laying in bed, tired. HEENT: Normal external appearance of nose and ear. Oral cavity normal EYES: Pupils equal. Conjunctiva normal. NECK: JVD not raised. Mass not palpable. RESPIRATORY: Respiratory effort normal. Lungs clear to auscultation. CARDIOVASCULAR: First and second sounds normal. No edema. ABDOMEN: Soft. Slight abdominal tenderness, no guarding or rigidity. Liver spleen not palpable PSYCHIATRY: Alert and oriented x3. Mood and affect normal. INVESTIGATIONS, reviewed in the clinical context: White count 6 potassium 3.7 AST 49 ALT 179 Admission labs: White count 5.6 AST 149 ALT to 89 alk phos 139 Abdominal ultrasound-2 cm stone at the gallbladder neck CT abdomen and pelvis results noted. Showing gallstone MRCP-showing gallstone no dilated duct Assessment: -Choledocholithiasis, symptomatic, followed by today laparoscopic cholecystectomy -Obesity BMI 39 -Chronic rheumatoid arthritis -Obstructive hepatitis Plan: Care was discussed the patient. Continue current medication treatment plan. Getting IV fluids. Diet to be advanced as per surgery Thank you Dr. Mills
[2018-11-22] MEDS: HYDROcodone/APAP 5-325MG 1 EACH TAB PO PRN ×3 (01:13→12:52)
[2018-11-22] MEDS: PIPERACILLIN-TAZOBACTAM 3.375 GM in SODIUM CHLORIDE 0.9% 100 ML IVPB SCH (06:31)
[2018-11-22 06:49] LABS: Basophils % (A) 0 %; Eosinophils % (A) 1 %; HCT 35.5 % (34.0-46.0); HGB 11.7 gm/dL (11.4-16.0); Lymphocytes # (A) 1.5 k/uL (1.0-4.8); Lymphocytes % (A) 23 %; MCH 29.8 pg (25.0-35.0); MCHC 32.9 g/dL (31.0-37.0); MCV 90.4 fL (80.0-100.0); Mean Platelet Volume 6.7; Monocytes # (A) 0.4 k/uL (0-1.0); Monocytes % (A) 6 %; Neutrophils # (A) 4.5 k/uL (1.3-7.7); Neutrophils % (A) 68 %; Platelet Count 218 k/uL (150-450); RBC 3.93 m/uL (3.80-5.40); RDW 14.8 % (11.5-15.5); WBC 6.5 k/uL (3.8-10.6)
[2018-11-22 06:59] LABS: ALT 136 U/L (9-52); AST 43 U/L (14-36); African American GFR (CKD) >90 (>60 ml/min/1.73 sqM); Albumin 3.2 g/dL (3.5-5.0); Alkaline Phosphatase 93 U/L (38-126); Anion Gap 7 mmol/L; Blood Urea Nitrogen 13 mg/dL (7-17); Calcium 8.6 mg/dL (8.4-10.2); Carbon Dioxide 25 mmol/L (22-30); Chloride 108 mmol/L (98-107); Glucose 115 mg/dL (74-99); Potassium 3.9 mmol/L (3.5-5.1); Sodium 140 mmol/L (137-145); Total Bilirubin 0.5 mg/dL (0.2-1.3); Total Protein 5.8 g/dL (6.3-8.2)
[2018-11-22] MEDS: SODIUM CHLORIDE 0.9% 1,000 ML IV SCH (07:27)
[2018-11-22] MEDS: FOLIC ACID 1 MG TAB PO SCH (08:02)
[2018-11-22] MEDS: FAMOTIDINE 20 MG/2 ML VIAL IV SCH (08:02)
[2018-11-22] MEDS: HEPARIN SODIUM,PORCINE 5,000 UNIT/ML 1 ML VIAL SQ SCH (08:02)
--- NOTE | 2018-11-22 12:36 | P.DS ---
Providers Date of admission: 11/20/18 14:10 Expected date of discharge: 11/22/18 Attending physician: Zhen Mills Consults: 11/18/18 20:53 Consult Physician Routine Consulting Provider: Garcia Neal Consult Reason/Comments: Medical Management Do you want consulting provider notified?: Yes Primary care physician: Jaspal Brown - Discharge Diagnosis(es) (1) Cholecystitis Patient admitted for right upper quadrant pain. Was found have elevated liver enzymes. Underwent MRCP in addition to her ultrasound. No choledocholithiasis was seen. Yesterday was taken operating room for cholecystectomy. Tolerated the procedure well. Doing well at this time. Plan discharge today. Outpatient follow-up in 1 week. Current Visit: Yes Status: Acute Patient Condition at Discharge: Serious Plan - Discharge Summary Discharge Rx Participant: Yes New Discharge Prescriptions: New Hydrocodone/Acetaminophen [[place] 5-325] 1 tab PO Q6HR PRN 3 Days #10 tab PRN Reason: Pain No Action Lysine [l-Lysine] 500 mg PO MOTUWETHFRSA Methotrexate Sodium [Methotrexate] 12.5 mg PO MARTINEZ Ibuprofen [Advil] 400 mg PO Q8HR PRN PRN Reason: Pain Folic Acid 1 mg PO MOTUWETHFRSA Discharge Medication List Lysine [l-Lysine] 500 mg PO MOTUWETHFRSA 10/06/16 [History] Folic Acid 1 mg PO MOTUWETHFRSA 11/18/18 [History] Ibuprofen [Advil] 400 mg PO Q8HR PRN 11/18/18 [History] Methotrexate Sodium [Methotrexate] 12.5 mg PO MARTINEZ 11/18/18 [History] Hydrocodone/Acetaminophen [[place] 5-325] 1 tab PO Q6HR PRN 3 Days #10 tab 11/22/18 [Rx] Follow up Appointment(s)/Referral(s): Zhen Mills MD [Medical Doctor] - 11/29/18 3:00 pm Sunday Brown MD [Primary Care Provider] - 1-2 days (pt will be called with an appointment)
[2018-11-22 12:57] VITALS: BP 129/77; PULSE 65; RESP 16; TEMP 97.9
--- NOTE | 2018-11-23 01:23 | P.PN ---
Progress Note - Text Progress Note Date: 11/22/18 Presenting complaint: Abdominal pain Interval history: Patient admitted with abdominal pain.. Gallstone. Seen by surgery. Status post laparoscopic cholecystectomy by Dr. Mendiola yesterday Today-feeling much better. Did tolerate her diet. Up and about. Her nausea vomiting. Feeling well. Review of systems: Was done for constitutional, cardiovascular, GI, pulmonary. relevant finding as above Current medications reviewed today are reviewed from the electronic records from today On examination: VITAL SIGNS: 97.8, 57, 18, 122.72, 96% room air GENERAL APPEARANCE: Laying in bed, tired. HEENT: Normal external appearance of nose and ear. Oral cavity normal EYES: Pupils equal. Conjunctiva normal. NECK: JVD not raised. Mass not palpable. RESPIRATORY: Respiratory effort normal. Lungs clear to auscultation. CARDIOVASCULAR: First and second sounds normal. No edema. ABDOMEN: Soft. Slight abdominal tenderness, no guarding or rigidity. Liver spleen not palpable PSYCHIATRY: Alert and oriented x3. Mood and affect normal. INVESTIGATIONS, reviewed in the clinical context: White count 6.5 potassium 3.9 AST 43 ALT 136 Admission labs: White count 5.6 AST 149 ALT to 89 alk phos 139 Abdominal ultrasound-2 cm stone at the gallbladder neck CT abdomen and pelvis results noted. Showing gallstone MRCP-showing gallstone no dilated duct Assessment: -Choledocholithiasis, symptomatic, followed by laparoscopic cholecystectomy -Obesity BMI 39 -Chronic rheumatoid arthritis -Obstructive hepatitis improving Plan: Medically stable. Continue current medication treatment plan. Patient is doing well. Thank you Dr. Mills
== END 2018-11-22 14:40 | disposition home or self-care (01) | DRG 419 ==
LOC: EC 18:24 → 4SSUR 22:17 → OBSVTOIN 11-20 14:10 → 6PED 11-21 09:27
PROVIDERS: ADMIT Surgery; ATTEND Surgery
PROC: 0FT44ZZ Resection of Gallbladder, Percutaneous Endoscopic Approach (ICD-10-PCS; principal; 2018-11-21 08:35)
DX: K81.0 Acute cholecystitis (principal); K58.9 Irritable bowel syndrome, unspecified; E66.9 Obesity, unspecified; Z68.39 Body mass index [BMI] 39.0-39.9, adult; K75.9 Inflammatory liver disease, unspecified; T45.1X5A Adverse effect of antineoplastic and immunosuppressive drugs, initial encounter; M06.9 Rheumatoid arthritis, unspecified; M19.90 Unspecified osteoarthritis, unspecified site; Z90.710 Acquired absence of both cervix and uterus; Z79.899 Other long term (current) drug therapy; Z88.6 Allergy status to analgesic agent; Z91.040 Latex allergy status
CPT/HCPCS: 36415; 74177; 74181; 76705; 80053; 81001; 82150; 83690; 84484; 85025; 88304; 93005; 96361; 96365; 99285

== ENCOUNTER → 2019-12-04 | Outpatient (CLI) | payer BC ==
--- NOTE | 2019-12-05 09:58 | MM ---
Reason for exam: screening (asymptomatic). Last mammogram was performed 1 year and 5 months ago. History: Took hormonal contraceptives for 15 years. Physical Findings: A clinical breast exam by your physician is recommended on an annual basis and results should be correlated with mammographic findings. MG 3D Screening Mammo W/Cad Bilateral CC and MLO view(s) were taken. Prior study comparison: July 11, 2018, bilateral MG 3d screening mammo w/cad. June 17, 2015, mammogram, performed at [facility]. There are scattered fibroglandular densities. Benign appearing bilateral calcifications. There is chronic nodularity in the right breast. No significant changes when compared with prior studies. ASSESSMENT: Benign, BI-RAD 2 RECOMMENDATION: Routine screening mammogram of both breasts in 1 year.
== END | disposition home or self-care (01) ==
LOC: RADMAMWWP 07:25
PROVIDERS: ATTEND Family Medicine
DX: Z12.31 Encounter for screening mammogram for malignant neoplasm of breast (principal)
CPT/HCPCS: 77063; 77067

== ENCOUNTER → 2020-01-02 | Outpatient (CLI) | payer BC ==
--- NOTE | 2020-01-02 11:55 | MR ---
EXAMINATION TYPE: MR cervical spine wo con DATE OF EXAM: 01/02/2020 11:38 AM COMPARISON: NONE HISTORY: Cervicalgia Multiplanar MultiSpin echo imaging of the cervical spine was performed. Comparison: none C2-C3: No evidence for degenerative disc disease. No disc bulge/herniation or protrusion. No Canal stenosis. Foramina are patent bilaterally. C3-C4: No evidence for degenerative disc disease. No disc bulge/herniation or protrusion. No Canal stenosis. Foramina are patent bilaterally. C4-C5: Mild disc desiccation noted. Posterocentral subligamentous disc herniation effaces the ventral thecal sac and demonstrates mild ventral CORD contact and sagittal data set. No evidence for chapis sive myelopathy. Borderline central stenosis. C5-C6: Moderate decreased signal ossified compatible degenerative disc disease. Broad-based posterior disc bulge posterocentrally into the right with encapsulating spur resulting in disc endplate comple x. There is effacement of the ventral thecal sac with [id number] central stenosis. There is rig ht greater than left foraminal encroachment. C6-C7: Moderate decreased signal and loss of height compatible with degenerative disc disease subliga mentous broad-based disc herniation with effacement of the ventral thecal sac. Mild central stenosis noted. No definite ventral cord contact. Mild bilateral foraminal encroachment. C7-T1: No evidence for degenerative disc disease. No disc bulge/herniation or protrusion. No Canal stenosis. Foramina are patent bilaterally. T1 hemangioma noted. Cervical segments are intact. There is normal alignment. Cervical spinal cord is of normal signal. Craniovertebral junction relationships are within normal limits. IMPRESSION: 1. Multilevel degenerative disc disease. 2. Multilevel central stenosis and disc herniation/disc bulging. See above.
== END | disposition home or self-care (01) ==
LOC: RADMRIMAIN 10:53
PROVIDERS: ATTEND Orthopaedic Surgery
DX: M48.02 Spinal stenosis, cervical region (principal); M50.321 Other cervical disc degeneration at C4-C5 level; M50.221 Other cervical disc displacement at C4-C5 level
CPT/HCPCS: 72141

== ENCOUNTER → 2020-01-02 | Outpatient (CLI) | payer BC ==
--- NOTE | 2020-01-02 13:52 | CT ---
EXAMINATION TYPE: CT cervical spine wo con DATE OF EXAM: 01/02/2020 COMPARISON: MR cervical spine 01/02/2020 HISTORY: Cervicalgia CT DLP: 589.4 mGycm Automated exposure control for dose reduction was used. TECHNIQUE: CT scan of the cervical spine is obtained without contrast, axial images are obtained, sagittal and c oronal reformatted images are also reviewed. FINDINGS: Cervical vertebral bodies are intact. Cervical spine is visualized in its entirety from C1 through upper thoracic levels, demonstrates sati sfactory alignment without evidence of acute fracture or dislocation. Prevertebral soft tissue appea rs within normal limits. The C1-C2 articulation is within normal limits on the coronal images. C4-5 shows a central disc herniation posteriorly as noted on MRI, posterior lateral extension endplat e disc height plaques at C5-6 towards the right causes anterolateral mass effect on the thecal sac. C 6-7 shows posterior extension endplate disc complex as noted on MRI. There is multilevel foraminal en croachment. IMPRESSION: Degenerative disc disease, global foraminal encroachment as described on the MRI same date..
== END | disposition home or self-care (01) ==
LOC: RADCTMAIN 10:51
PROVIDERS: ATTEND Orthopaedic Surgery
DX: M50.30 Other cervical disc degeneration, unspecified cervical region (principal); Z91.040 Latex allergy status; Z88.6 Allergy status to analgesic agent
CPT/HCPCS: 72125

== ENCOUNTER → 2020-04-15 | Outpatient (CLI) | payer BC ==
--- NOTE | 2020-04-16 11:43 | CT ---
EXAMINATION TYPE: CT angio head neck DATE OF EXAM: 04/15/2020 HISTORY: JAMES COMPARISON: None CT DLP: 1900 mGycm. Automated Exposure Control for Dose Reduction was Utilized. TECHNIQUE: CTA scan of the neck is performed without and with IV Contrast, patient injected with 100 mL of Isovue 370, axial images are obtained, coronal and sagittal reformatted images are reviewed. T hree-D reconstructed images could not be performed on an independent workstation due to contrast tech nical limitations. Source images are reviewed. FINDINGS: Carotid/Vascular Structures: There is a three-vessel arch. The common carotid vessels appear normal. Vertebral arteries appear codominant. There is medial deviation of the carotid bifurcations which monserrat ear to be in the pretracheal space. No significant flow-limiting stenosis is identified. There is abigail e tortuosity of vessels. Cervical of [place]: Contrast is faint through the [place]. Vertebral basilar system appears normal. Posterior cerebral vasculature is unremarkable. Internal carotid arteries bifurcate normally into A1 and M1 segments. A2 segments are normal. The anterior communicating artery is patent. Posteri or communicating arteries are not identified. IMPRESSION: 1. No flow-limiting stenosis bilateral carotid bifurcations. 2. Normal big sandy of [place] 3. CTA somewhat limited due to technical difficulties during the examination.
== END | disposition home or self-care (01) ==
LOC: RADCTMAIN 13:05
PROVIDERS: ATTEND Orthopaedic Surgery
DX: R51.9 Headache, unspecified (principal)
CPT/HCPCS: 70496; 70498; Q9967

== ENCOUNTER → 2020-05-30 | Outpatient (CLI) | payer BC ==
[2020-05-30 15:46] LABS: ALT 30 U/L (4-34); AST 26 U/L (14-36); African American GFR (CKD) 88 (>60 ml/min/1.73 sqM); Albumin 4.1 g/dL (3.5-5.0); Albumin/Globulin Ratio 1.5; Alkaline Phosphatase 66 U/L (38-126); Anion Gap 6 mmol/L; Blood Urea Nitrogen 25 mg/dL (7-17); Calcium 9.6 mg/dL (8.4-10.2); Carbon Dioxide 30 mmol/L (22-30); Chloride 101 mmol/L (98-107); Globulin 2.7 g/dL; Glucose 97 mg/dL (74-99); Non-African American GFR(CKD) 77 (>60 ml/min/1.73 sqM); Potassium 4.6 mmol/L (3.5-5.1); Sodium 137 mmol/L (137-145); Total Bilirubin 0.4 mg/dL (0.2-1.3); Total Protein 6.8 g/dL (6.3-8.2)
[2020-05-30 23:21] LABS: Basophils # (A) 0.04 X 10*3/uL (0.00-0.10); Basophils % (A) 0.7 %; Eosinophils # (A) 0.22 X 10*3/uL (0.04-0.35); Eosinophils % (A) 3.8 %; HCT 42.9 % (37.2-46.3); Lymphocytes # (A) 1.81 X 10*3/uL (0.90-5.00); Lymphocytes % (A) 31.1 %; MCH 31.1 pg (27.0-32.0); MCHC 32.6 g/dL (32.0-37.0); MCV 95.3 fL (80.0-97.0); Mean Platelet Volume 10.3 fL (9.5-12.2); Monocytes % (A) 10.3 %; Neutrophils # (A) 3.14 X 10*3/uL (1.80-7.70); Neutrophils % (A) 53.9 %; Platelet Count 242 X 10*3/uL (140-440); RDW 12.6 % (11.5-14.5); WBC 5.82 X 10*3/uL (4.50-10.00)
[2020-05-30 23:52] LABS: INR 1.02 (0.90-1.11); Partial Thromboplastin Time 25.1 sec (23.5-31.0); Prothrombin Time 11.1 sec (9.9-11.9)
== END | disposition home or self-care (01) ==
LOC: LABWHC1 13:45
PROVIDERS: ATTEND Family Medicine
DX: Z01.812 Encounter for preprocedural laboratory examination (principal)
CPT/HCPCS: 36415; 80053; 85025; 85610; 85730; 86850; 86900; 86901

== ENCOUNTER → 2022-07-28 | Outpatient (CLI) | payer BC ==
--- NOTE | 2022-07-29 06:52 | MM ---
Reason for Exam: Screening (asymptomatic). Last mammogram was performed 2 year(s) and 8 month(s) ago. Patient History: Menarche at age 13. First Full-Term at age 20. Hysterectomy at age 36. Postmenopausal. Patient used Hormonal Contraceptives for 15 years. Risk Values: Mary 5 year model risk: 1.1%. NCI Lifetime model risk: 6.0%. Prior Study Comparison: 06/17/2015 Screening Mammogram, [facility]. 07/11/2018 Bilateral Screening Mammogram, [facility]. 12/04/2019 Bilateral Screening Mammogram, [facility]. Tissue Density: There are scattered fibroglandular densities. Findings: Analyzed By CAD. A few scattered benign-appearing tiny round calcifications bilaterally are redemonstrated. Stable oval circumscribed 6 mm mass in the right breast upper outer quadrant from prior mammograms. There is no suspicious group of microcalcifications or new suspicious mass in either breast. Overall Assessment: Benign, BI-RAD 2 Management: Screening Mammogram of both breasts in 1 year. . Patient should continue monthly self-breast exams. A clinical breast exam by your physician is recommended on an annual basis. This exam should not preclude additional follow-up of suspicious palpable abnormalities. Note on Mary scores and lifetime risk: 1. A Mary score greater than 3% is considered moderate risk. If this is the case, consider specialist referral to assess eligibility for a risk reducing agent. 2. If overall lifetime risk for the development of breast cancer is 20% or higher, the patient may qualify for future screening with alternating mammogram and breast MRI. Electronically signed and approved by: Talib Mosquera M.D.
== END | disposition home or self-care (01) ==
LOC: RADMAMWWP 13:38
PROVIDERS: ATTEND Family Medicine
DX: Z12.31 Encounter for screening mammogram for malignant neoplasm of breast (principal); Z78.0 Asymptomatic menopausal state
CPT/HCPCS: 77063; 77067

== ENCOUNTER → 2023-11-18 | Outpatient (CLI) | payer BC ==
--- NOTE | 2023-12-05 18:35 | MM ---
Reason for Exam: Screening (asymptomatic). Last mammogram was performed 1 year(s) and 3 month(s) ago. Patient History: Menarche at age 13. First Full-Term at age 20. Hysterectomy at age 36. Postmenopausal. Patient used Hormonal Contraceptives for 15 years. Risk Values: Mary 5 year model risk: 1.1%. NCI Lifetime model risk: 5.8%. Prior Study Comparison: 07/11/2018 Bilateral Screening Mammogram, [facility]. 12/04/2019 Bilateral Screening Mammogram, [facility]. 07/28/2022 Bilateral MG 3D screening mammo w/cad, [facility]. Tissue Density: The breasts are almost entirely fatty. Findings: Analyzed By CAD. Chronic nodularity on the right. Benign round and punctate calcifications. There is no suspicious group of microcalcifications or new suspicious mass in either breast. Overall Assessment: Benign, BI-RAD 2 Management: Screening Mammogram of both breasts in 1 year. . Patient should continue monthly self-breast exams. A clinical breast exam by your physician is recommended on an annual basis. This exam should not preclude additional follow-up of suspicious palpable abnormalities. Note on Mary scores and lifetime risk: 1. A Mary score greater than 3% is considered moderate risk. If this is the case, consider specialist referral to assess eligibility for a risk reducing agent. 2. If overall lifetime risk for the development of breast cancer is 20% or higher, the patient may qualify for future screening with alternating mammogram and breast MRI. Electronically signed and approved by: Jasmina Martinez M.D. Radiologist
== END | disposition home or self-care (01) ==
LOC: RADMAMWWP 08:30
PROVIDERS: ATTEND Family Medicine
DX: Z78.0 Asymptomatic menopausal state (principal); R92.313 Mammographic fatty tissue density, bilateral breasts
CPT/HCPCS: 77063; 77067

== ENCOUNTER → 2023-12-12 | Outpatient (CLI) | payer BC ==
--- NOTE | 2023-12-13 23:28 | BD ---
EXAMINATION TYPE: Axial Bone Density DATE OF EXAM: 12/12/2023 CLINICAL HISTORY: 63 years old Female. ICD-10 CODE: Z78.0 ASYMPTOMATIC MENOPAUS Height: 5 ft 3 in Weight: 242 FRAX RISK QUESTIONS: Alcohol (3 or more units per day): no Family History (Parent hip fracture): no Glucocorticoids (More than 3mos): no (Ex: prednisone, prednisolone, methylprednisolone, dexamethasone, and hydrocortisone). History of Fracture in Adulthood: no Secondary Osteoporosis: 1. Type 1 Diabetes: no 2. Hyperthyroidism: no 3. Menopause before 45: no 4. Malnutrition: no 5. Chronic liver disease: no Rheumatoid Arthritis: yes Current Tobacco Use: no RISK FACTORS HISTORY OF: Surgery to Spine/Hip(right/left)/Wrist (right/left): c spine 2021 MEDICATIONS: Thyroid Medications: no Osteoporosis Medications: no EXAM MEASUREMENTS: Bone mineral densitometry was performed using the [employer] System. Bone mineral density as measured about the Lumbar spine is: ----- L1-L4(G/cm2): 1.092 T Score Values are as follows: ----- L1: -1.2 ----- L2: -1.1 ----- L3: -0.5 ----- L4: -0.5 ----- L1-L4: -0.7 Z Score Values are as follows: ----- L1: -1.1 ----- L2: -1.0 ----- L3: -0.4 ----- L4: -0.4 ----- L1-L4: -0.6 baseline Bone mineral density about the R hip (g/cm2): 0.872 Bone mineral density about the L hip (g/cm2): 0.954 T Score values are as follows: -----R Neck: -1.2 -----L Neck: -0.6 -----R Total: -0.6 -----L Total: 0.1 Z Score values are as follows: -----R Neck: -0.7 -----L Neck: -0.1 -----R Total: -0.5 -----L Total: 0.2 baseline FRAX%s: The graph provided illustrates a 6.5 % chance for a major osteoporotic fx and a 0.4 % chance for the hips probability for fx in 10 years time. IMPRESSION: Osteopenia (T Score between -2.5 and -1). There is slightly increased risk of fracture and the patient may be considered for treatment. Re-Screen 2-5 years. NOTE: T-SCORE=SD OF THE YOUNG ADULT MEAN. [facility], , 12/13/2023 11:26 PM
== END | disposition home or self-care (01) ==
LOC: RADBDWWP 08:17
PROVIDERS: ATTEND Family Medicine
DX: Z78.0 Asymptomatic menopausal state
CPT/HCPCS: 77080